=== PATIENT | male | born 1955 | race Caucasian/White ===

== ENCOUNTER 2017-04-18 18:57 | Emergency (ER) | payer OTHER, MEDICAID ==
[~2017-04-18] VITALS: Ht 170.2 cm; Wt 72.6 kg
[~2017-04-18 18:57] MED LIST: ASPI-498 OR; CHOL20007 PO; CYAN100023 PO; DOCU-80 PO; FER325T PO; GABA600T; INSLANTI; INSLISPI SC; OMEP20TA30
[2017-04-18] MEDS ORDERED: VANCOMYCIN 1GM/250ML D5W 250 ML IV ONE (19:45)
[2017-04-18] MEDS ORDERED: InsuLIN REG 1unit/0.01ml Soln (100units/ml) IV ONE (19:45)
[2017-04-18] MEDS ORDERED: KETOROLAC TROMETH 30 MG/ML 1ML VIAL IV ONE (19:45)
[2017-04-18 21:40] VITALS: BP 131/77
== END 2017-04-18 21:45 | disposition home or self-care (01) ==
LOC: ER 19:05
DX: L03.115 Cellulitis of right lower limb (principal); E11.65 Type 2 diabetes mellitus with hyperglycemia; E78.00 Pure hypercholesterolemia, unspecified; I13.0 Hypertensive heart and chronic kidney disease with heart failure and stage 1 through stage 4 chronic kidney disease, or unspecified chronic kidney disease; E11.22 Type 2 diabetes mellitus with diabetic chronic kidney disease; N18.9 Chronic kidney disease, unspecified; I50.9 Heart failure, unspecified; Z79.4 Long term (current) use of insulin; Z79.82 Long term (current) use of aspirin
CPT/HCPCS: 82962; 96365; 96366; 96375; 99285; J1815; J1885; J3370

== ENCOUNTER 2017-05-05 15:19 | Emergency (ER) | payer OTHER, MEDICAID ==
[~2017-05-05] VITALS: Ht 167.6 cm; Wt 54.4 kg
[2017-05-06] MEDS ORDERED: ALTEPLASE ONE (00:04)
[2017-05-06 00:28] VITALS: BP 154/80
== END 2017-05-06 00:29 | disposition home or self-care (01) ==
LOC: ER 15:27
DX: T82.898A Other specified complication of vascular prosthetic devices, implants and grafts, initial encounter (principal); I13.0 Hypertensive heart and chronic kidney disease with heart failure and stage 1 through stage 4 chronic kidney disease, or unspecified chronic kidney disease; I50.9 Heart failure, unspecified; N18.9 Chronic kidney disease, unspecified; E11.22 Type 2 diabetes mellitus with diabetic chronic kidney disease; E78.5 Hyperlipidemia, unspecified; Z79.899 Other long term (current) drug therapy; Y93.89 Activity, other specified; Y99.8 Other external cause status; Y92.89 Other specified places as the place of occurrence of the external cause
CPT/HCPCS: 96374; 99284; J1642

== ENCOUNTER 2017-09-29 11:13 | Inpatient (IN) | payer MEDICARE, MEDICAID ==
[~2017-09-29] VITALS: Ht 167.6 cm; Wt 83.5 kg
[2017-09-29 11:47] LABS: Basophils # (auto) 0 uL; Basophils % (auto) 0.2 % (0.0-2.0); Eosinophils # (auto) 0 uL; Hematocrit 26.6 % (41.0-53.0); Hemoglobin 9.2 g/dL (13.5-17.5); Lymphocytes # (auto) 0.3 uL; Lymphocytes % (auto) 2.4 % (10.0-50.0); Mean Corpuscular Hemoglobin 31.4 pg (28.0-32.0); Mean Corpuscular Hgb Conc. 34.5 g/dL (32.0-36.0); Mean Corpuscular Volume 90.9 fL (80.0-100.0); Monocytes # (auto) 0.6 uL; Monocytes % (auto) 4.9 % (0.0-12.0); Neutrophils # (auto) 11.5 uL; Neutrophils % (auto) 92.5 % (37.0-80.0); Platelet Count (auto) 243 10^3/uL (140-450); Red Blood Cells 2.93 10^6/uL (4.5-5.90); Red Cell Distribution Width 15.7 % (11.8-14.3); White Blood Cell 12.5 10^3/uL (4.4-10.8)
[2017-09-29] MEDS ORDERED: SODIUM CHLORIDE 0.9% 1,000 ML IV ONE (12:06)
[2017-09-29] MEDS ORDERED: NALBUPHINE HCL 10 MG/1ml INJECTION IV ONE (12:15)
[2017-09-29] MEDS ORDERED: ONDANSETRON HCL 4 MG/2 ML VIAL IV ONE (12:15)
[2017-09-29 12:19] LABS: Albumin 3.1 g/dL (3.4-5.0); BUN/Creatinine Ratio 17.4; Bilirubin, Total 0.7 mg/dL (0.2-1.0); Calcium 8.4 mg/dL (8.5-10.1); Potassium 3.8 mmol/L (3.5-5.1); Total Protein 7.1 g/dL (6.4-8.2)
[2017-09-29 12:35] LABS: Urine Bacteria NONE SEEN /hpf (None Seen); Urine Blood 1+ /uL (Negative); Urine Specific Gravity 1.015 (1.001-1.035); Urine WBC <1 /hpf (0 - 3)
[2017-09-29 13:57] LABS: INR 1.22 (0.9-1.15); Partial Thromboplastin Time 38.1 sec (22.64-33.71); Prothrombin Time 13.3 sec (9.37-12.3)
[2017-09-29] MEDS ORDERED: LORazepam 0.5 MG TAB PO PRN (14:45)
[2017-09-29] MEDS ORDERED: PROMETHAZINE HCL 25 MG/ML 1ML IV PRN (14:45)
[2017-09-29] MEDS ORDERED: LACTULOSE 20Gm/30ML SOLN PO PRN (14:45)
[2017-09-29] MEDS ORDERED: NITROGLYCERIN 0.4 MG SL TAB SL PRN (14:45)
[2017-09-29] MEDS ORDERED: MORPHINE SULFATE 4 MG/ML SYR/VIAL IV PRN ×2 (14:45)
[2017-09-29] MEDS ORDERED: DEXTROSE (50%) 50ML SYRG IV PRN (14:45)
[2017-09-29] MEDS ORDERED: ACETAMINOPHEN 500 MG TAB PO PRN (14:45)
[2017-09-29] MEDS: SODIUM CHLORIDE 0.9% 1,000 ML IV SCH (15:05)
[2017-09-29] MEDS: ACCU-CHEK COMFORT CURVE STRIP VI SCH ×2 (16:20→20:00)
[2017-09-29] MEDS: InsuLIN REG 1unit/0.01ml Soln (100units/ml) SC SCH ×2 (16:21→20:00)
[2017-09-29] MEDS ORDERED: MAGNESIUM SULFATE 1GM/100ML 100 ML IV ONE (17:15)
[2017-09-29] MEDS: FERROUS SULFATE 325 MG TAB PO SCH (17:25)
[2017-09-29 17:48] VITALS: BP 134/75
[2017-09-29] MEDS: HYDROcodone-ACET 5/325MG TAB PO PRN (19:42)
[2017-09-29 22:00] VITALS: BP 113/56
[2017-09-29] MEDS: INSULIN LANTUS (GLARGINE) 1 /0.01ml (100units/ml) SC SCH (22:00)
[2017-09-29] MEDS: DOCUSATE SOD 100 MG CAP PO SCH (22:40)
[2017-09-29] MEDS: CYANOCOBALAMIN 500 MCG TAB PO SCH (22:40)
[2017-09-29] MEDS: CLINDAMYCIN 600MG IV 50 ML IV SCH (22:41)
[2017-09-29] MEDS ORDERED: GABAPENTIN 300 MG CAP PO ONE (23:00)
[2017-09-30] MEDS: SODIUM CHLORIDE 0.9% 1,000 ML IV SCH ×3 (01:03→20:45)
[2017-09-30] MEDS: HYDROcodone-ACET 5/325MG TAB PO PRN ×3 (01:58→21:49)
[2017-09-30] MEDS: InsuLIN REG 1unit/0.01ml Soln (100units/ml) SC SCH ×6 (04:10→20:17)
[2017-09-30] MEDS: ACCU-CHEK COMFORT CURVE STRIP VI SCH ×6 (04:10→20:17)
[2017-09-30 05:48] VITALS: BP 108/58
[2017-09-30] MEDS: CLINDAMYCIN 600MG IV 50 ML IV SCH ×3 (06:17→21:51)
[2017-09-30] MEDS: FERROUS SULFATE 325 MG TAB PO SCH ×2 (08:21→18:00)
[2017-09-30 09:20] VITALS: BP 111/60
[2017-09-30] MEDS: DOCUSATE SOD 100 MG CAP PO SCH ×2 (09:46→21:49)
[2017-09-30] MEDS: cefTRIAXone 1GM/10ml IVPUSH 10 ML IV SCH (09:46)
[2017-09-30] MEDS: CYANOCOBALAMIN 500 MCG TAB PO SCH ×2 (09:47→21:49)
[2017-09-30] MEDS ORDERED: LEVEMIR SC (11:07)
[2017-09-30] MEDS ORDERED: INSU100I2 SC (11:07)
[2017-09-30] MEDS ORDERED: FURO40TA4 PO (11:07)
[2017-09-30] MEDS ORDERED: POTA10TA51 PO (11:07)
[2017-09-30] MEDS ORDERED: CHOL100047 PO (11:07)
[2017-09-30] MEDS ORDERED: CYAN100056 PO (11:07)
[2017-09-30] MEDS ORDERED: ATOR40TA52 PO (11:07)
[2017-09-30] MEDS ORDERED: SITA100T7 PO (11:07)
[2017-09-30] MEDS ORDERED: DICL1GEL26 TD (11:35)
[2017-09-30 13:44] VITALS: BP 117/60
[2017-09-30 15:56] LABS: Basophils # (auto) 0 uL; Eosinophils # (auto) 0 uL; Eosinophils % (auto) 0.3 % (0.0-7.0); Hemoglobin 9.2 g/dL (13.5-17.5); Lymphocytes # (auto) 0.5 uL; Lymphocytes % (auto) 4.9 % (10.0-50.0); Mean Corpuscular Hemoglobin 31.3 pg (28.0-32.0); Monocytes # (auto) 0.5 uL; Monocytes % (auto) 5.1 % (0.0-12.0); Neutrophils # (auto) 8.6 uL; Neutrophils % (auto) 89.7 % (37.0-80.0); Platelet Count (auto) 241 10^3/uL (140-450); Red Blood Cells 2.93 10^6/uL (4.5-5.90); Red Cell Distribution Width 15.7 % (11.8-14.3); White Blood Cell 9.5 10^3/uL (4.4-10.8)
[2017-09-30 16:03] LABS: INR 1.05 (0.9-1.15); Prothrombin Time 11.4 sec (9.37-12.3)
[2017-09-30 16:10] LABS: Albumin 2.7 g/dL (3.4-5.0); BUN/Creatinine Ratio 15.1; Bilirubin, Total 0.3 mg/dL (0.2-1.0); Calcium 8.7 mg/dL (8.5-10.1); Potassium 4.3 mmol/L (3.5-5.1); Total Protein 7.2 g/dL (6.4-8.2)
[2017-09-30 17:29] VITALS: BP 140/74
[2017-09-30] MEDS ORDERED: IPRATROPIUM BROM 0.5 MG/2.5ML INH SOL NEB PRN (18:45)
[2017-09-30] MEDS: MEPERIDINE HCL (25 MG/ML) 1ML VIAL IV PRN (20:17)
[2017-09-30 20:22] VITALS: BP 140/74
[2017-09-30] MEDS: ATORVASTATIN 20 MG TAB PO SCH (21:48)
[2017-09-30] MEDS: GABAPENTIN 300 MG CAP PO SCH (21:49)
[2017-09-30] MEDS: INSULIN LANTUS (GLARGINE) 1 /0.01ml (100units/ml) SC SCH (21:50)
[2017-09-30 22:00] VITALS: BP 119/62
[2017-09-30] MEDS: DICLOFENAC SODIUM 3% TOP SCH (22:00)
[2017-10-01] VITALS (9 sets, daily range): BP systolic 110–146; BP diastolic 60–80
[2017-10-01] MEDS ORDERED: ALBUTEROL SULF 2.5 MG/0.5ML(0.5%) NEB SOLN NEB PRN
[2017-10-01] MEDS: ACCU-CHEK COMFORT CURVE STRIP VI SCH ×7 (00:08→23:47)
[2017-10-01] MEDS: MEPERIDINE HCL (25 MG/ML) 1ML VIAL IV PRN ×5 (00:34→19:59)
[2017-10-01] MEDS: InsuLIN REG 1unit/0.01ml Soln (100units/ml) SC SCH ×7 (04:00→23:47)
[2017-10-01] MEDS: HYDROcodone-ACET 5/325MG TAB PO PRN ×3 (04:18→21:13)
[2017-10-01] MEDS: CLINDAMYCIN 600MG IV 50 ML IV SCH ×3 (06:10→21:14)
[2017-10-01] MEDS: GABAPENTIN 300 MG CAP PO SCH ×4 (06:10→21:12)
[2017-10-01 06:26] LABS: Basophils # (auto) 0 uL; Basophils % (auto) 0.1 % (0.0-2.0); Eosinophils # (auto) 0.1 uL; Hemoglobin 7.7 g/dL (13.5-17.5); Lymphocytes # (auto) 0.5 uL; Monocytes # (auto) 0.5 uL; Neutrophils # (auto) 5.9 uL; Nucleated Red Blood Cells % 0.1 %
[2017-10-01 06:28] LABS: Eosinophils % (auto) 1.2 % (0.0-7.0); Hematocrit 22.2 % (41.0-53.0); Lymphocytes % (auto) 6.7 % (10.0-50.0); Mean Corpuscular Hemoglobin 31.6 pg (28.0-32.0); Mean Corpuscular Hgb Conc. 34.6 g/dL (32.0-36.0); Mean Corpuscular Volume 91.4 fL (80.0-100.0); Monocytes % (auto) 7.2 % (0.0-12.0); Neutrophils % (auto) 84.8 % (37.0-80.0); Platelet Count (auto) 213 10^3/uL (140-450); Red Blood Cells 2.43 10^6/uL (4.5-5.90); Red Cell Distribution Width 15.4 % (11.8-14.3)
[2017-10-01 06:50] LABS: Potassium 4.6 mmol/L (3.5-5.1)
[2017-10-01] MEDS: SODIUM CHLORIDE 0.9% 1,000 ML IV SCH ×2 (06:55→16:45)
[2017-10-01 07:00] LABS: Albumin 2.3 g/dL (3.4-5.0); BUN/Creatinine Ratio 20.2; Bilirubin, Total 0.3 mg/dL (0.2-1.0); Calcium 8.8 mg/dL (8.5-10.1); Total Protein 6.1 g/dL (6.4-8.2)
[2017-10-01] MEDS: FERROUS SULFATE 325 MG TAB PO SCH ×2 (08:00→18:26)
[2017-10-01] MEDS: cefTRIAXone 1GM/10ml IVPUSH 10 ML IV SCH (09:14)
[2017-10-01] MEDS: CYANOCOBALAMIN 500 MCG TAB PO SCH ×3 (10:00→21:13)
[2017-10-01] MEDS: DICLOFENAC SODIUM 3% TOP SCH ×2 (10:00→21:15)
[2017-10-01] MEDS: FUROSEMIDE 40 MG TAB PO SCH (10:00)
[2017-10-01] MEDS: DOCUSATE SOD 100 MG CAP PO SCH ×3 (10:00→21:13)
[2017-10-01] MEDS: POTASSIUM CHL 10 Meq TABLET PO SCH (10:00)
[2017-10-01] MEDS ORDERED: fentaNYL CITRATE 100 MCG/2 ML VL ONE (11:24)
[2017-10-01] MEDS ORDERED: MIDAZOLAM HCL 1MG/1ML-2 ML VIAL ONE (11:24)
[2017-10-01] MEDS ORDERED: MEPERIDINE HCL (50 MG/ML) 1 ML VIAL ONE (11:25)
[2017-10-01] MEDS ORDERED: PROPOFOL 10 MG/ML 20 ML IV ONE (11:25)
[2017-10-01] MEDS ORDERED: DEXAMETHASONE SOD PHOS 10MG/1ML VIAL INJ ONE (11:25)
[2017-10-01] MEDS ORDERED: BUPIVACAINE W/ EPINEPH 0.25% INJ 50ML MDV ONE (11:51)
[2017-10-01] MEDS ORDERED: BUPIVACAINE 0.25% INJ 50ML VIAL ONE (11:52)
[2017-10-01] MEDS ORDERED: BUPIVACAINE HCL 50 ML ONE (11:52)
[2017-10-01] MEDS ORDERED: ceFAZolin 1GM/50ML 50 ML IV ONE (11:58)
[2017-10-01] MEDS ORDERED: hydrALAZINE HCL 20 MG/ML VL IV PRN (13:45)
[2017-10-01] MEDS ORDERED: ACCU-CHEK COMFORT CURVE STRIP VI ONE (13:45)
[2017-10-01] MEDS ORDERED: KETOROLAC TROMETH 30 MG/ML 1ML VIAL IV ONE (13:45)
[2017-10-01] MEDS ORDERED: ONDANSETRON HCL 4 MG/2 ML VIAL IV ONE (13:45)
[2017-10-01] MEDS ORDERED: LABETALOL HCL 5 MG/ML 4ML SYRINGE IV PRN (13:45)
[2017-10-01] MEDS ORDERED: ePHEDrine SULFATE 50 MG/ML AMP IV PRN (13:45)
[2017-10-01] MEDS ORDERED: MIDAZOLAM HCL 1MG/1ML-2 ML VIAL IV PRN (13:45)
[2017-10-01] MEDS ORDERED: fentaNYL CITRATE 100 MCG/2 ML VL IV ONE (14:00)
[2017-10-01] MEDS: ceFAZolin 1GM/50ML 50 ML IV SCH ×2 (18:26→23:46)
[2017-10-01] MEDS: ATORVASTATIN 20 MG TAB PO SCH (21:12)
[2017-10-01] MEDS: INSULIN LANTUS (GLARGINE) 1 /0.01ml (100units/ml) SC SCH (21:14)
[2017-10-02] MEDS: MEPERIDINE HCL (25 MG/ML) 1ML VIAL IV PRN ×4 (01:27→15:36)
[2017-10-02] MEDS: SODIUM CHLORIDE 0.9% 1,000 ML IV SCH ×2 (02:45→12:45)
[2017-10-02] MEDS: HYDROcodone-ACET 5/325MG TAB PO PRN ×2 (04:18→18:02)
[2017-10-02] MEDS: ACCU-CHEK COMFORT CURVE STRIP VI SCH ×5 (04:18→19:41)
[2017-10-02] MEDS: InsuLIN REG 1unit/0.01ml Soln (100units/ml) SC SCH ×5 (04:19→19:50)
[2017-10-02 04:58] VITALS: BP 124/67
[2017-10-02] MEDS: CLINDAMYCIN 600MG IV 50 ML IV SCH ×3 (05:58→22:02)
[2017-10-02] MEDS: ceFAZolin 1GM/50ML 50 ML IV SCH ×3 (05:59→17:32)
[2017-10-02] MEDS: GABAPENTIN 300 MG CAP PO SCH ×3 (05:59→22:02)
[2017-10-02 07:08] LABS: Basophils # (auto) 0 uL; Basophils % (auto) 0.1 % (0.0-2.0); Eosinophils # (auto) 0 uL; Hematocrit 28.7 % (41.0-53.0); Hemoglobin 9.9 g/dL (13.5-17.5); Lymphocytes # (auto) 0.4 uL; Lymphocytes % (auto) 4.4 % (10.0-50.0); Mean Corpuscular Hemoglobin 31.1 pg (28.0-32.0); Mean Corpuscular Hgb Conc. 34.6 g/dL (32.0-36.0); Mean Corpuscular Volume 89.8 fL (80.0-100.0); Monocytes # (auto) 0.6 uL; Neutrophils # (auto) 7.5 uL; Neutrophils % (auto) 88.5 % (37.0-80.0); Platelet Count (auto) 267 10^3/uL (140-450); Red Blood Cells 3.19 10^6/uL (4.5-5.90); Red Cell Distribution Width 15.4 % (11.8-14.3); White Blood Cell 8.5 10^3/uL (4.4-10.8)
[2017-10-02 07:23] LABS: BUN/Creatinine Ratio 25.5; Calcium 8.4 mg/dL (8.5-10.1); Potassium 4.5 mmol/L (3.5-5.1)
[2017-10-02] MEDS: FERROUS SULFATE 325 MG TAB PO SCH ×2 (08:24→17:32)
[2017-10-02 09:00] VITALS: BP 134/69
[2017-10-02] MEDS: cefTRIAXone 1GM/10ml IVPUSH 10 ML IV SCH (09:38)
[2017-10-02] MEDS: FUROSEMIDE 40 MG TAB PO SCH (09:46)
[2017-10-02] MEDS: DOCUSATE SOD 100 MG CAP PO SCH ×2 (09:46→22:02)
[2017-10-02] MEDS: POTASSIUM CHL 10 Meq TABLET PO SCH (09:46)
[2017-10-02] MEDS: CYANOCOBALAMIN 500 MCG TAB PO SCH ×2 (09:46→22:03)
[2017-10-02] MEDS: DICLOFENAC SODIUM 3% TOP SCH ×2 (10:00→22:00)
[2017-10-02] MEDS ORDERED: PANTOPRAZOLE 40 MG/10 ML VIAL IV ONE (10:15)
[2017-10-02] MEDS ORDERED: ALUM & MAG HYDROX-SIMETH LIQ(MAALOX) 30 ML PO PRN (11:00)
[2017-10-02 14:24] VITALS: BP 130/71
[2017-10-02 16:40] VITALS: BP 129/61
[2017-10-02] MEDS: TEMAZEPAM 15 MG CAP PO PRN (22:04)
[2017-10-02] MEDS: ATORVASTATIN 20 MG TAB PO SCH (22:04)
[2017-10-02] MEDS: INSULIN LANTUS (GLARGINE) 1 /0.01ml (100units/ml) SC SCH (22:10)
[2017-10-02 23:07] VITALS: BP 137/74
[2017-10-03] MEDS: ceFAZolin 1GM/50ML 50 ML IV SCH ×3 (00:11→11:34)
[2017-10-03] MEDS: ACCU-CHEK COMFORT CURVE STRIP VI SCH ×6 (00:26→20:04)
[2017-10-03] MEDS: InsuLIN REG 1unit/0.01ml Soln (100units/ml) SC SCH ×6 (00:27→20:05)
[2017-10-03] MEDS: HYDROcodone-ACET 5/325MG TAB PO PRN ×3 (00:28→16:16)
[2017-10-03] MEDS: SODIUM CHLORIDE 0.9% 1,000 ML IV SCH ×3 (05:09→20:05)
[2017-10-03] MEDS: MEPERIDINE HCL (25 MG/ML) 1ML VIAL IV PRN ×2 (05:10→21:09)
[2017-10-03 05:17] VITALS: BP 161/91
[2017-10-03] MEDS: GABAPENTIN 300 MG CAP PO SCH ×3 (05:44→22:05)
[2017-10-03] MEDS: CLINDAMYCIN 600MG IV 50 ML IV SCH ×3 (05:44→22:07)
[2017-10-03 08:13] LABS: Basophils # (auto) 0 uL; Basophils % (auto) 0.2 % (0.0-2.0); Eosinophils # (auto) 0.1 uL; Eosinophils % (auto) 1.8 % (0.0-7.0); Hematocrit 30.9 % (41.0-53.0); Hemoglobin 10.6 g/dL (13.5-17.5); Lymphocytes # (auto) 0.5 uL; Lymphocytes % (auto) 10.9 % (10.0-50.0); Mean Corpuscular Hgb Conc. 34.2 g/dL (32.0-36.0); Mean Corpuscular Volume 90.9 fL (80.0-100.0); Monocytes # (auto) 0.4 uL; Monocytes % (auto) 8.1 % (0.0-12.0); Neutrophils # (auto) 3.9 uL; Nucleated Red Blood Cells % 0.1 %; Platelet Count (auto) 261 10^3/uL (140-450); Red Cell Distribution Width 15.6 % (11.8-14.3)
[2017-10-03] MEDS: FERROUS SULFATE 325 MG TAB PO SCH ×2 (08:15→17:30)
[2017-10-03 08:59] VITALS: BP 144/81
[2017-10-03] MEDS: DICLOFENAC SODIUM 3% TOP SCH ×2 (10:00→22:00)
[2017-10-03] MEDS: FUROSEMIDE 40 MG TAB PO SCH (10:17)
[2017-10-03] MEDS: cefTRIAXone 1GM/10ml IVPUSH 10 ML IV SCH (10:17)
[2017-10-03] MEDS: ENOXAPARIN SOD 40 MG/0.4 ML SYRINGE SC SCH (10:18)
[2017-10-03] MEDS: CYANOCOBALAMIN 500 MCG TAB PO SCH ×2 (10:18→22:05)
[2017-10-03] MEDS: PANTOPRAZOLE 40 MG/10 ML VIAL IV SCH (10:18)
[2017-10-03] MEDS: DOCUSATE SOD 100 MG CAP PO SCH ×2 (10:18→22:04)
[2017-10-03] MEDS: POTASSIUM CHL 10 Meq TABLET PO SCH (10:18)
[2017-10-03 13:00] VITALS: BP 148/74
[2017-10-03 17:31] VITALS: BP 151/110
[2017-10-03 19:09] VITALS: BP 151/110
[2017-10-03 21:20] VITALS: BP 143/75
[2017-10-03] MEDS: ATORVASTATIN 20 MG TAB PO SCH (22:06)
[2017-10-03] MEDS: TEMAZEPAM 15 MG CAP PO PRN (22:07)
[2017-10-03] MEDS: INSULIN LANTUS (GLARGINE) 1 /0.01ml (100units/ml) SC SCH (22:08)
[2017-10-04] MEDS: InsuLIN REG 1unit/0.01ml Soln (100units/ml) SC SCH ×6 (00:02→19:59)
[2017-10-04] MEDS: ACCU-CHEK COMFORT CURVE STRIP VI SCH ×6 (00:02→19:59)
[2017-10-04] MEDS: HYDROcodone-ACET 5/325MG TAB PO PRN ×3 (02:09→21:38)
[2017-10-04] MEDS: SODIUM CHLORIDE 0.9% 1,000 ML IV SCH ×3 (04:45→21:36)
[2017-10-04 05:05] VITALS: BP 139/73
[2017-10-04] MEDS: CLINDAMYCIN 600MG IV 50 ML IV SCH ×3 (05:43→21:38)
[2017-10-04] MEDS: GABAPENTIN 300 MG CAP PO SCH ×3 (05:43→21:37)
[2017-10-04 06:56] LABS: Basophils # (auto) 0 uL; Basophils % (auto) 0.3 % (0.0-2.0); Eosinophils # (auto) 0.2 uL; Eosinophils % (auto) 2.9 % (0.0-7.0); Hematocrit 31.3 % (41.0-53.0); Hemoglobin 10.7 g/dL (13.5-17.5); Lymphocytes # (auto) 0.8 uL; Lymphocytes % (auto) 14.3 % (10.0-50.0); Mean Corpuscular Hemoglobin 31.2 pg (28.0-32.0); Mean Corpuscular Volume 91.7 fL (80.0-100.0); Monocytes # (auto) 0.5 uL; Neutrophils # (auto) 3.9 uL; Neutrophils % (auto) 72.5 % (37.0-80.0); Platelet Count (auto) 265 10^3/uL (140-450); Red Blood Cells 3.42 10^6/uL (4.5-5.90); Red Cell Distribution Width 15.6 % (11.8-14.3); White Blood Cell 5.4 10^3/uL (4.4-10.8)
[2017-10-04] MEDS: FERROUS SULFATE 325 MG TAB PO SCH ×2 (08:45→17:56)
[2017-10-04] MEDS: cefTRIAXone 1GM/10ml IVPUSH 10 ML IV SCH (08:45)
[2017-10-04 08:53] VITALS: BP 143/72
[2017-10-04] MEDS: MEPERIDINE HCL (25 MG/ML) 1ML VIAL IV PRN ×2 (09:54→19:43)
[2017-10-04] MEDS: PANTOPRAZOLE 40 MG/10 ML VIAL IV SCH (09:54)
[2017-10-04] MEDS: FUROSEMIDE 40 MG TAB PO SCH (09:55)
[2017-10-04] MEDS: DOCUSATE SOD 100 MG CAP PO SCH ×2 (09:55→21:36)
[2017-10-04] MEDS: POTASSIUM CHL 10 Meq TABLET PO SCH (09:55)
[2017-10-04] MEDS: DICLOFENAC SODIUM 3% TOP SCH ×2 (09:56→22:00)
[2017-10-04] MEDS: CYANOCOBALAMIN 500 MCG TAB PO SCH ×2 (09:56→21:37)
[2017-10-04] MEDS: ENOXAPARIN SOD 40 MG/0.4 ML SYRINGE SC SCH (09:56)
[2017-10-04 13:00] VITALS: BP 152/73
[2017-10-04 17:02] VITALS: BP 153/76
[2017-10-04] MEDS: ATORVASTATIN 20 MG TAB PO SCH (21:37)
[2017-10-04] MEDS: INSULIN LANTUS (GLARGINE) 1 /0.01ml (100units/ml) SC SCH (21:38)
[2017-10-04 21:48] VITALS: BP 151/72
[2017-10-05] MEDS: ACCU-CHEK COMFORT CURVE STRIP VI SCH ×4 (01:25→12:00)
[2017-10-05] MEDS: MEPERIDINE HCL (25 MG/ML) 1ML VIAL IV PRN ×3 (01:32→13:49)
[2017-10-05] MEDS: InsuLIN REG 1unit/0.01ml Soln (100units/ml) SC SCH ×4 (04:03→12:00)
[2017-10-05 04:46] VITALS: BP 155/82
[2017-10-05] MEDS: GABAPENTIN 300 MG CAP PO SCH ×2 (05:24→13:48)
[2017-10-05] MEDS: CLINDAMYCIN 600MG IV 50 ML IV SCH (05:24)
[2017-10-05 06:40] LABS: Basophils # (auto) 0 uL; Basophils % (auto) 0.2 % (0.0-2.0); Eosinophils # (auto) 0.2 uL; Eosinophils % (auto) 2.9 % (0.0-7.0); Hematocrit 30.8 % (41.0-53.0); Hemoglobin 10.5 g/dL (13.5-17.5); Lymphocytes # (auto) 0.8 uL; Lymphocytes % (auto) 14.1 % (10.0-50.0); Mean Corpuscular Hemoglobin 31.1 pg (28.0-32.0); Mean Corpuscular Hgb Conc. 34.3 g/dL (32.0-36.0); Mean Corpuscular Volume 90.9 fL (80.0-100.0); Monocytes # (auto) 0.6 uL; Monocytes % (auto) 11.1 % (0.0-12.0); Neutrophils # (auto) 4.2 uL; Neutrophils % (auto) 71.7 % (37.0-80.0); Nucleated Red Blood Cells % 0.1 %; Platelet Count (auto) 260 10^3/uL (140-450); Red Blood Cells 3.39 10^6/uL (4.5-5.90); Red Cell Distribution Width 15.2 % (11.8-14.3); White Blood Cell 5.8 10^3/uL (4.4-10.8)
[2017-10-05] MEDS: FERROUS SULFATE 325 MG TAB PO SCH (08:05)
[2017-10-05 08:51] VITALS: BP 149/78
[2017-10-05] MEDS: DICLOFENAC SODIUM 3% TOP SCH (10:00)
[2017-10-05] MEDS: cefTRIAXone 1GM/10ml IVPUSH 10 ML IV SCH (10:22)
[2017-10-05] MEDS: PANTOPRAZOLE 40 MG/10 ML VIAL IV SCH (10:22)
[2017-10-05] MEDS: CYANOCOBALAMIN 500 MCG TAB PO SCH (10:23)
[2017-10-05] MEDS: POTASSIUM CHL 10 Meq TABLET PO SCH (10:23)
[2017-10-05] MEDS: DOCUSATE SOD 100 MG CAP PO SCH (10:23)
[2017-10-05] MEDS: FUROSEMIDE 40 MG TAB PO SCH (10:24)
[2017-10-05] MEDS: ENOXAPARIN SOD 40 MG/0.4 ML SYRINGE SC SCH (10:24)
[2017-10-05] MEDS: SODIUM CHLORIDE 0.9% 1,000 ML IV SCH (10:45)
[2017-10-05 12:49] VITALS: BP 140/70
[2017-10-05 14:06] VITALS: BP 150/84
== END 2017-10-05 14:15 | DRG 470 ==
LOC: EDBD 11:13 → ER 11:13 → TELE-EAST 11:14
PROVIDERS: ADMIT Internal Medicine; ATTEND Family Medicine
PROC: 0MBL0ZZ Excision of Right Hip Bursa and Ligament, Open Approach (ICD-10-PCS; 2017-10-01)
PROC: 30233N1 Transfusion of Nonautologous Red Blood Cells into Peripheral Vein, Percutaneous Approach (ICD-10-PCS; 2017-10-01)
PROC: 0SRR0JA Replacement of Right Hip Joint, Femoral Surface with Synthetic Substitute, Uncemented, Open Approach (ICD-10-PCS; principal; 2017-10-01 11:58)
DX: S72.001A Fracture of unspecified part of neck of right femur, initial encounter for closed fracture (principal); D68.9 Coagulation defect, unspecified; E44.0 Moderate protein-calorie malnutrition; I13.0 Hypertensive heart and chronic kidney disease with heart failure and stage 1 through stage 4 chronic kidney disease, or unspecified chronic kidney disease; E11.65 Type 2 diabetes mellitus with hyperglycemia; R65.10 Systemic inflammatory response syndrome (SIRS) of non-infectious origin without acute organ dysfunction; E87.1 Hypo-osmolality and hyponatremia; M86.9 Osteomyelitis, unspecified; S93.04XA Dislocation of right ankle joint, initial encounter; K21.9 Gastro-esophageal reflux disease without esophagitis
CPT/HCPCS: 36415; 71045; 73502; 73610; 80048; 80053; 81001; 82962; 83036; 83735; 85025; 85610; 85730; 86850; 86900; 86901; 86920; 93005; 93306; 96361; 96365; 96375; 97110; 97530; C9113; J0690; J1100; J1815; J2250; J2405; J2704; J3490

== ENCOUNTER 2018-02-12 17:45 | Observation (INO) | payer MEDICARE ==
[~2018-02-12] VITALS: Ht 167.6 cm; Wt 54.4 kg
[~2018-02-12 17:45] MED LIST changes: +ATOR40TA52 PO; +CHOL100047 PO; -CHOL20007 PO; -CYAN100023 PO; +CYAN100056 PO; +DICL1GEL26 TD; +FURO40TA4 PO; -INSLANTI; -INSLISPI SC; +INSU100I2 SC; +LEVEMIR SC; +POTA10TA51 PO; +SITA100T7 PO
[2018-02-12] MEDS ORDERED: IOHEXOL 300 MG/ML 100ML BOTTLE IJ ONE (18:45)
[2018-02-12 18:56] LABS: Basophils # (auto) 0 uL; Basophils % (auto) 0.6 % (0.0-2.0); Eosinophils # (auto) 0 uL; Eosinophils % (auto) 1.1 % (0.0-7.0); Hematocrit 27.3 % (41.0-53.0); Hemoglobin 9.3 g/dL (13.5-17.5); Lymphocytes # (auto) 0.7 uL; Mean Corpuscular Hemoglobin 29.1 pg (28.0-32.0); Mean Corpuscular Hgb Conc. 34.1 g/dL (32.0-36.0); Mean Corpuscular Volume 85.2 fL (80.0-100.0); Monocytes # (auto) 0.3 uL; Neutrophils # (auto) 3.3 uL; Neutrophils % (auto) 75.3 % (37.0-80.0); Red Blood Cells 3.21 10^6/uL (4.5-5.90); Red Cell Distribution Width 15.9 % (11.8-14.3); White Blood Cell 4.3 10^3/uL (4.4-10.8)
[2018-02-12 18:59] LABS: Platelet Count (auto) 101 10^3/uL (140-450)
[2018-02-12] MEDS ORDERED: PANTOPRAZOLE 40 MG/10 ML VIAL IV ONE (19:00)
[2018-02-12] MEDS ORDERED: ALUM & MAG HYDROX-SIMETH LIQ(MAALOX) 30 ML PO ONE (19:00)
[2018-02-12] MEDS ORDERED: ONDANSETRON HCL 4 MG/2 ML VIAL IV ONE (19:00)
[2018-02-12 19:03] LABS: Albumin 3.1 g/dL (3.4-5.0); BUN/Creatinine Ratio 14.8; Calcium 8.5 mg/dL (8.5-10.1); Magnesium 1.7 mg/dL (1.6-2.6); Potassium 3.4 mmol/L (3.5-5.1)
[2018-02-12 19:08] LABS: Bilirubin, Total 0.3 mg/dL (0.2-1.0); Total Protein 7.3 g/dL (6.4-8.2)
[2018-02-12 20:26] VITALS: BP 131/84
== END 2018-02-12 21:23 | disposition home or self-care (01) | DRG 392 ==
LOC: EDUNIT# 17:45 → EDBD 17:45 → ER 17:53 → OVERFLOW 17:54 → ER 21:23
PROVIDERS: ADMIT Anesthesiology; ATTEND Anesthesiology
DX: K21.9 Gastro-esophageal reflux disease without esophagitis (principal); I13.0 Hypertensive heart and chronic kidney disease with heart failure and stage 1 through stage 4 chronic kidney disease, or unspecified chronic kidney disease; E86.0 Dehydration; E11.22 Type 2 diabetes mellitus with diabetic chronic kidney disease; K80.20 Calculus of gallbladder without cholecystitis without obstruction; I50.9 Heart failure, unspecified; N18.9 Chronic kidney disease, unspecified; E78.5 Hyperlipidemia, unspecified; K25.9 Gastric ulcer, unspecified as acute or chronic, without hemorrhage or perforation; Z79.899 Other long term (current) drug therapy
CPT/HCPCS: 36415; 74177; 80053; 83735; 84484; 85025; 93005; 96374; 99285; C9113; G0378; Q9967

== ENCOUNTER 2021-05-11 21:19 | Inpatient (IN) | payer OTHER, MEDICAID ==
[~2021-05-11] VITALS: Ht 167.6 cm; Wt 52.2 kg
[2021-05-11 22:59] LABS: Eosinophils # (auto) 0 10 ^3/uL (0-0.8); Lymphocytes # (auto) 0.3 10 ^3/uL (0.4-5.4); Monocytes # (auto) 0.2 10 ^3/uL (0-1.3); Monocytes % (auto) 4.3 % (0.0-12.0); Neutrophils # (auto) 4.5 10 ^3/uL (1.6-8.6)
[2021-05-11 23:10] LABS: Basophils # (auto) 0.1 10 ^3/uL (0-0.2); Basophils % (auto) 1.7 % (0.0-2.0); Eosinophils % (auto) 0.8 % (0.0-7.0); Hematocrit 22.1 % (41.0-53.0); Hemoglobin 7.9 g/dL (13.5-17.5); Lymphocytes % (auto) 5.9 % (10.0-50.0); Mean Corpuscular Hemoglobin 30.8 pg (28.0-32.0); Mean Corpuscular Hgb Conc. 35.8 g/dL (32.0-36.0); Mean Corpuscular Volume 86.1 fL (80.0-100.0); Neutrophils % (auto) 87.3 % (37.0-80.0); Red Blood Cells 2.57 10^6/uL (4.5-5.90); Red Cell Distribution Width 13.3 % (11.8-14.3); White Blood Cell 5.2 10^3/uL (4.4-10.8)
[2021-05-11 23:18] LABS: Albumin 3.3 g/dL (3.4-5.0); Potassium 4.7 mmol/L (3.5-5.1)
[2021-05-11 23:20] LABS: BUN/Creatinine Ratio 9.4
[2021-05-11 23:33] LABS: Bilirubin, Total 0.6 mg/dL (0.2-1.0); Total Protein 6.3 g/dL (6.4-8.2)
[2021-05-12] MEDS ORDERED: SODIUM CHLORIDE 0.9% 1,000 ML IV ONE (05:45)
[2021-05-12] MEDS ORDERED: MORPHINE SULFATE INJECTION 2 MG/ML SYRG IV ONE (08:30)
[2021-05-12] MEDS ORDERED: ONDANSETRON HCL 4 MG/2 ML VIAL IV ONE (08:30)
[2021-05-12 09:58] LABS: Urine Bacteria NONE SEEN /hpf (None Seen); Urine Blood TRACE /uL (Negative); Urine Specific Gravity 1.003 (1.001-1.035); Urine WBC <1 /hpf (0 - 3)
[2021-05-12 10:10] LABS: Albumin 3.1 g/dL (3.4-5.0); Calcium 7.9 mg/dL (8.5-10.1); Magnesium 1.4 mg/dL (1.6-2.6); Potassium 4.4 mmol/L (3.5-5.1)
[2021-05-12 10:14] LABS: BUN/Creatinine Ratio 10.9; Bilirubin, Total 0.5 mg/dL (0.2-1.0); Total Protein 6.4 g/dL (6.4-8.2)
[2021-05-12] MEDS ORDERED: MORPHINE SULFATE INJECTION 2 MG/ML SYRG IV PRN (10:15)
[2021-05-12] MEDS ORDERED: NITROGLYCERIN 0.4 MG SL TAB SL PRN (10:15)
[2021-05-12] MEDS ORDERED: ONDANSETRON HCL 4 MG/2 ML VIAL ONE (10:40)
[2021-05-12] MEDS ORDERED: MORPHINE SULFATE INJECTION 2 MG/ML SYRG ONE (10:40)
[2021-05-12 10:52] LABS: % Iron Saturation 44.5 % (20-55)
[2021-05-12 12:29] LABS: Basophils # (auto) 0 10 ^3/uL (0-0.2); Eosinophils # (auto) 0 10 ^3/uL (0-0.8); Lymphocytes # (auto) 0.3 10 ^3/uL (0.4-5.4); Monocytes # (auto) 0.2 10 ^3/uL (0-1.3); Neutrophils # (auto) 2.8 10 ^3/uL (1.6-8.6); White Blood Cell 3.4 10^3/uL (4.4-10.8)
[2021-05-12 12:31] LABS: Basophils % (auto) 0.3 % (0.0-2.0); Eosinophils % (auto) 0.9 % (0.0-7.0); Hematocrit 22.3 % (41.0-53.0); Mean Corpuscular Hemoglobin 31.3 pg (28.0-32.0); Mean Corpuscular Hgb Conc. 36.1 g/dL (32.0-36.0); Mean Corpuscular Volume 86.9 fL (80.0-100.0); Neutrophils % (auto) 82.8 % (37.0-80.0); Nucleated Red Blood Cells % 0.1 %; Red Blood Cells 2.56 10^6/uL (4.5-5.90); Red Cell Distribution Width 13.4 % (11.8-14.3)
[2021-05-12] MEDS ORDERED: FER325T PO (13:35)
[2021-05-12] MEDS ORDERED: GABA400C PO (13:35)
[2021-05-12] MEDS ORDERED: ASCO500T11 PO (13:35)
[2021-05-12] MEDS ORDERED: DONE1TAB88 PO (13:35)
[2021-05-12] MEDS ORDERED: LEVEMIR SC (13:35)
[2021-05-12] MEDS ORDERED: LISI20TA28 PO (13:35)
[2021-05-12] MEDS ORDERED: METF500S PO (13:35)
[2021-05-12] MEDS ORDERED: DEXTROSE (50%) 50ML SYRG IV PRN (15:45)
[2021-05-12] MEDS ORDERED: SODIUM CHL 3% 300 ML IV ONE (15:45)
[2021-05-12] MEDS: InsuLIN REG 1unit/0.01ml Soln (100units/ml) SC SCH ×2 (17:30→23:00)
[2021-05-12] MEDS: MAGNESIUM SULFATE 1GM/100ML 100 ML IV SCH ×2 (17:30→20:30)
[2021-05-12] MEDS: ACCU-CHEK COMFORT CURVE STRIP VI SCH ×2 (17:49→23:00)
[2021-05-12] MEDS: DONEPEZIL HYDROCHLORIDE 5 MG TAB PO SCH (23:00)
[2021-05-13 05:30] LABS: Magnesium 1.8 mg/dL (1.6-2.6); Potassium 3.6 mmol/L (3.5-5.1)
[2021-05-13 05:36] LABS: Albumin 2.7 g/dL (3.4-5.0); BUN/Creatinine Ratio 16.1; Bilirubin, Total 0.2 mg/dL (0.2-1.0); Calcium 7.1 mg/dL (8.5-10.1); Total Protein 5.6 g/dL (6.4-8.2)
[2021-05-13] MEDS: ACCU-CHEK COMFORT CURVE STRIP VI SCH ×4 (06:45→22:00)
[2021-05-13] MEDS: InsuLIN REG 1unit/0.01ml Soln (100units/ml) SC SCH ×4 (06:45→22:36)
[2021-05-13 08:10] LABS: Basophils # (auto) 0 10 ^3/uL (0-0.2); Basophils % (auto) 0.4 % (0.0-2.0); Eosinophils # (auto) 0.1 10 ^3/uL (0-0.8); Eosinophils % (auto) 1.6 % (0.0-7.0); Hematocrit 24.5 % (41.0-53.0); Hemoglobin 8.6 g/dL (13.5-17.5); Lymphocytes # (auto) 0.4 10 ^3/uL (0.4-5.4); Lymphocytes % (auto) 12.6 % (10.0-50.0); Mean Corpuscular Volume 88.7 fL (80.0-100.0); Monocytes # (auto) 0.2 10 ^3/uL (0-1.3); Monocytes % (auto) 7.2 % (0.0-12.0); Neutrophils # (auto) 2.6 10 ^3/uL (1.6-8.6); Neutrophils % (auto) 78.2 % (37.0-80.0); Nucleated Red Blood Cells % 0.1 %; Red Blood Cells 2.76 10^6/uL (4.5-5.90); Red Cell Distribution Width 13.5 % (11.8-14.3); White Blood Cell 3.3 10^3/uL (4.4-10.8)
[2021-05-13 08:52] LABS: INR 0.98 (0.9-1.15)
[2021-05-13] MEDS ORDERED: NITROGLYCERIN 0.4 MG SL TAB SL PRN (09:45)
[2021-05-13] MEDS ORDERED: MORPHINE SULFATE INJECTION 2 MG/ML SYRG IV PRN (09:45)
[2021-05-13] MEDS: PANTOPRAZOLE 40 MG/10 ML VIAL INJ IV SCH (09:47)
[2021-05-13] MEDS ORDERED: METF-370 PO (10:10)
[2021-05-13] MEDS ORDERED: TRIO1TP TOP (10:10)
[2021-05-13] MEDS ORDERED: LISI-716 PO (10:10)
[2021-05-13] MEDS ORDERED: GABA800T97 PO (10:10)
[2021-05-13] MEDS: D5W 5% 1,000 ML IV SCH ×2 (10:37→17:31)
[2021-05-13 10:46] LABS: % Iron Saturation 50.4 % (20-55)
[2021-05-13 12:00] VITALS: BP 108/81
[2021-05-13 14:11] LABS: Calcium 8.4 mg/dL (8.5-10.1); Potassium 4.8 mmol/L (3.5-5.1)
[2021-05-13 14:14] LABS: BUN/Creatinine Ratio 13.9
[2021-05-13 22:00] VITALS: BP 141/86
[2021-05-13] MEDS ORDERED: SODIUM CHL 3% 100 ML IV ONE (22:30)
[2021-05-13] MEDS: DONEPEZIL HYDROCHLORIDE 5 MG TAB PO SCH (22:38)
[2021-05-14] MEDS ORDERED: HALOPERIDOL LACTATE 5 MG/ML INJ VIAL IM ONE (00:30)
[2021-05-14] MEDS: InsuLIN REG 1unit/0.01ml Soln (100units/ml) SC SCH ×2 (05:20→11:41)
[2021-05-14] MEDS: ACCU-CHEK COMFORT CURVE STRIP VI SCH ×2 (05:20→11:41)
[2021-05-14 09:29] VITALS: BP 149/78
[2021-05-14] MEDS: PANTOPRAZOLE 40 MG/10 ML VIAL INJ IV SCH (09:58)
[2021-05-14] MEDS ORDERED: CHOLECALCIFEROL (VITD3) 2,000 UNIT CAP/TAB PO SCH (10:00)
[2021-05-14 10:33] LABS: Hemoglobin 8.2 g/dL (13.5-17.5)
[2021-05-14 10:49] LABS: BUN/Creatinine Ratio 17.7; Calcium 8.8 mg/dL (8.5-10.1); Magnesium 1.7 mg/dL (1.6-2.6); Potassium 5.4 mmol/L (3.5-5.1)
[2021-05-14] MEDS ORDERED: CHOL20007 PO (11:44)
[2021-05-14] MEDS ORDERED: MAGNESIUM SULFATE 1GM/100ML 100 ML IV ONE (11:45)
[2021-05-14] MEDS ORDERED: SODIUM ZIRCONIUM CYCL 10 GM PAK PO ONE (11:45)
== END 2021-05-14 15:39 | disposition home health service (06) | DRG 640 ==
LOC: ER 21:22 → TELE 05-12 10:07 → TELE-WESTW 05-13 10:52 → TELE-CENTR 05-13 20:47
PROVIDERS: ADMIT Internal Medicine; ATTEND Internal Medicine
DX: E87.1 Hypo-osmolality and hyponatremia (principal); N17.0 Acute kidney failure with tubular necrosis; I50.32 Chronic diastolic (congestive) heart failure; I13.0 Hypertensive heart and chronic kidney disease with heart failure and stage 1 through stage 4 chronic kidney disease, or unspecified chronic kidney disease; E11.65 Type 2 diabetes mellitus with hyperglycemia; N18.9 Chronic kidney disease, unspecified; K21.9 Gastro-esophageal reflux disease without esophagitis; F03.90 Unspecified dementia, unspecified severity, without behavioral disturbance, psychotic disturbance, mood disturbance, and anxiety; D64.89 Other specified anemias; E11.22 Type 2 diabetes mellitus with diabetic chronic kidney disease; E55.9 Vitamin D deficiency, unspecified; E78.5 Hyperlipidemia, unspecified; E86.1 Hypovolemia; N28.1 Cyst of kidney, acquired; N40.0 Benign prostatic hyperplasia without lower urinary tract symptoms; Z96.641 Presence of right artificial hip joint; Z53.29 Procedure and treatment not carried out because of patient's decision for other reasons; Z20.822 Contact with and (suspected) exposure to COVID-19; Z82.49 Family history of ischemic heart disease and other diseases of the circulatory system; Z89.511 Acquired absence of right leg below knee
CPT/HCPCS: 36415; 71250; 74176; 80048; 80053; 80061; 81001; 82306; 82728; 82962; 83036; 83540; 83550; 83735; 84154; 84443; 85014; 85018; 85025; 85610; 87426; 93005; 96361; 96374; 96375; C9113; G0378; J1815; J2405

== ENCOUNTER 2022-05-19 14:23 | Inpatient (IN) | payer OTHER, MEDICAID ==
[~2022-05-19] VITALS: Ht 172.7 cm; Wt 55.5 kg
[~2022-05-19 14:23] MED LIST changes: +ASCO500T11 PO; -ASPI-498 OR; -CHOL100047 PO; -CYAN100056 PO; -DICL1GEL26 TD; -DOCU-80 PO; +DONE1TAB88 PO; -FURO40TA4 PO; -GABA600T; +GABA800T97 PO; +LISI-716 PO; +METF-370 PO; -POTA10TA51 PO; -SITA100T7 PO
[2022-05-19] MEDS ORDERED: AZITHROMYCIN 500MG/ 250ML 250 ML IV ONE (14:45)
[2022-05-19] MEDS ORDERED: SODIUM CHLORIDE 0.9% 1,000 ML IVB ONE (14:45)
[2022-05-19] MEDS ORDERED: cefTRIAXone 1GM/50ML D5W 50 ML IV ONE (14:45)
[2022-05-19] MEDS ORDERED: SODIUM CHLORIDE 0.9% 1,000 ML IV ONE (14:45)
[2022-05-19 15:21] LABS: Basophils # (auto) 0 10 ^3/uL (0-0.2); Eosinophils # (auto) 0 10 ^3/uL (0-0.8); Lymphocytes # (auto) 0.3 10 ^3/uL (0.4-5.4); Lymphocytes % (auto) 4.2 % (10.0-50.0); Monocytes # (auto) 0.4 10 ^3/uL (0-1.3); Neutrophils # (auto) 7.5 10 ^3/uL (1.6-8.6); Nucleated Red Blood Cells % 0.1 %; Red Blood Cells 2.65 10^6/uL (4.5-5.90); White Blood Cell 8.2 10^3/uL (4.4-10.8)
[2022-05-19 15:23] LABS: Basophils % (auto) 0.4 % (0.0-2.0); Hematocrit 27.9 % (41.0-53.0); Hemoglobin 8.5 g/dL (13.5-17.5); Mean Corpuscular Hgb Conc. 30.5 g/dL (32.0-36.0); Mean Corpuscular Volume 105.2 fL (80.0-100.0); Monocytes % (auto) 4.5 % (0.0-12.0); Neutrophils % (auto) 90.9 % (37.0-80.0); Red Cell Distribution Width 15.8 % (11.8-14.3)
[2022-05-19 15:48] LABS: Albumin 3.3 g/dL (3.4-5.0); Anion Gap 21 (5-15); Blood Alcohol < 3.0 mg/dL (0-5); Calcium 8.3 mg/dL (8.5-10.1); Chloride 118 mmol/L (98-107); Glucose 175 mg/dL (74-106); Sodium 143 mmol/L (136-145)
[2022-05-19 15:50] LABS: Aspartate Aminotransferase 23 U/L (15-37); BUN/Creatinine Ratio 22.7; GFR African American 9 mL/min; GFR Non-African American 8 mL/min; INR 1.03 (0.9-1.15); Partial Thromboplastin Time 35.6 sec (24.6-33.4)
[2022-05-19 16:00] LABS: Alanine Aminotransferase 27 U/L (16-61); Alkaline Phosphatase 120 U/L (45-117); Bilirubin, Total 0.3 mg/dL (0.2-1.0); Total Protein 6.2 g/dL (6.4-8.2)
[2022-05-19 16:04] LABS: Carbon Dioxide 4 mmol/L (21-32); Potassium 8.1 mmol/L (3.5-5.1)
[2022-05-19 16:05] LABS: Blood Urea Nitrogen 170 mg/dL (7-18)
[2022-05-19] MEDS ORDERED: CALCIUM GLUC 1,000mg/50ml-NS 50 ML IV ONE (16:15)
[2022-05-19] MEDS ORDERED: ALBUTEROL SULF 2.5 MG/0.5ML(0.5%) NEB SOLN NEB ONE (16:15)
[2022-05-19] MEDS ORDERED: SODIUM ZIRCONIUM CYCL 10 GM PAK PO ONE (16:15)
[2022-05-19] MEDS ORDERED: FUROSEMIDE 20 MG/2 ML VIAL IV ONE ×2 (16:15→20:15)
[2022-05-19] MEDS ORDERED: InsuLIN REG 1unit/0.01ml Soln (100units/ml) IV ONE (16:15)
[2022-05-19] MEDS ORDERED: SODIUM BICARBONATE 8.4% INJ 50ML SYRINGE IV ONE (16:15)
[2022-05-19] MEDS ORDERED: DEXTROSE (50%) 50ML SYRG IV ONE (16:15)
[2022-05-19] MEDS ORDERED: MORPHINE SULFATE INJ 2 MG/ml SYRG IV PRN (16:45)
[2022-05-19] MEDS ORDERED: NITROGLYCERIN 0.4 MG SL TAB SL PRN (16:45)
[2022-05-19] MEDS ORDERED: PANTOPRAZOLE 40 MG/10 ML VIAL INJ IV ONE (16:45)
[2022-05-19] MEDS ORDERED: SODIUM BICARBONATE 8.4 % INJ 50ML VIAL IV ONE (17:00)
[2022-05-19] MEDS ORDERED: SODIUM BICARBONATE 50ML VIAL 150 ML in D5W 5% 1,000 ML IV ONE (17:00)
[2022-05-19] MEDS ORDERED: NOREPINEPHRINE 8 MG/250 ML IV ONE (17:10)
[2022-05-19 17:41] LABS: % Iron Saturation 112.3 % (20-55)
[2022-05-19] MEDS ORDERED: AMIODARONE 450mg/250ml AE 250 ML IV ONE (17:55)
[2022-05-19] MEDS ORDERED: AMIODARONE HCL (50 MG/ ML) 3 ML VIAL IV ONE (17:55)
[2022-05-19] MEDS ORDERED: AMIODARONE HCL 150 MG in D5W 5% 100 ML IV ONE ×2 (18:00)
[2022-05-19] MEDS ORDERED: NOREPINEPHRINE 8 MG/250ML KIT 250 ML IV SCH (18:00)
[2022-05-19] MEDS ORDERED: AMIODARONE 450mg/250ml AE 250 ML IV SCH ×2 (18:00→18:15)
[2022-05-19] MEDS: PHENYLEPHRINE IV 250 ML IV SCH ×2 (18:07→23:43)
[2022-05-19] MEDS ORDERED: PHENYLEPHRINE IV 250 ML IV ONE (18:13)
[2022-05-19] MEDS ORDERED: ETOMIDATE (2MG/ML) 20ML VIAL IV ONE ×2 (20:03→20:15)
[2022-05-19] MEDS ORDERED: ROCURONIUM 10MG/ML 10ML VIAL IV ONE ×2 (20:04→20:15)
[2022-05-19] MEDS ORDERED: methylPREDNISolone SOD SUCC 125 MG/2 ML VL IV STA (20:09)
[2022-05-19] MEDS: MIDAZOLAM DRIP 50 mg/50mL 50 ML IV SCH (20:15)
[2022-05-19] MEDS ORDERED: MIDAZOLAM DRIP 50 mg/50mL 50 ML IV ONE (20:19)
[2022-05-19] MEDS ORDERED: BUMETANIDE 2.5mg/10ml (0.25 mg/ml) INJ IV ONE (20:30)
[2022-05-19 20:36] VITALS: BP 118/63
[2022-05-19 20:58] VITALS: BP 128/35
[2022-05-19 21:37] LABS: BUN/Creatinine Ratio 23.4; Calcium 8.3 mg/dL (8.5-10.1); Potassium 3.7 mmol/L (3.5-5.1)
[2022-05-19] MEDS: SODIUM CHLOR 0.9% PF (SALINE LOCK) 10ML VIAL/SYR IV SCH (22:00)
[2022-05-19] MEDS: methylPREDNISolone SOD SUCC 125 MG/2 ML VL IV SCH (22:00)
[2022-05-19] MEDS: HEPARIN SODIUM (PORCINE) 5000 UNITS/ML 1ML VIAL SC SCH (22:00)
[2022-05-19 22:04] VITALS: BP 120/58
[2022-05-19] MEDS: fentaNYL Drip 2500mCg/250mlNS 250 ML IV SCH (23:46)
[2022-05-19 23:57] VITALS: BP 128/65
[2022-05-20] VITALS (33 sets, daily range): BP systolic 106–133; BP diastolic 48–71
[2022-05-20] MEDS ORDERED: AMIODARONE 450mg/250ml AE 250 ML IV SCH
[2022-05-20] MEDS: AMIODARONE 450mg/250ml AE 250 ML IV SCH ×2 (00:17→15:26)
[2022-05-20 00:20] LABS: Alcohol, Urine < 3.0 mg/dL (0-10); Amphetamine Screen, Urine NEGATIVE (NEGATIVE); Barbiturate Scree,Urine NEGATIVE (NEGATIVE); Benzodiazephine Screen, Urine NEGATIVE (NEGATIVE); Cannabinoid Screen, Urine NEGATIVE (NEGATIVE); Cocaine Screen, Urine NEGATIVE (NEGATIVE); Opiate Scree,Urine NEGATIVE (NEGATIVE); Phencyclidine Screen, Urine NEGATIVE (NEGATIVE)
[2022-05-20 00:52] LABS: Urine Bacteria NONE SEEN /hpf (None Seen); Urine Blood 3+ /uL (Negative); Urine Hyaline Cast FEW /lpf (0 - 2); Urine Specific Gravity 1.014 (1.001-1.035); Urine WBC 38 /hpf (0 - 3); Urine WBC Clumps PRESENT /hpf (None Seen)
[2022-05-20] MEDS: PHENYLEPHRINE IV 250 ML IV SCH (01:49)
[2022-05-20] MEDS: SODIUM CHLOR 0.9% PF (SALINE LOCK) 10ML VIAL/SYR IV SCH ×3 (06:00→22:18)
[2022-05-20 06:16] LABS: Hemoglobin 8.3 g/dL (13.5-17.5)
[2022-05-20 06:19] LABS: Hematocrit 25.1 % (41.0-53.0); Mean Corpuscular Hemoglobin 31.7 pg (28.0-32.0); Mean Corpuscular Hgb Conc. 32.9 g/dL (32.0-36.0); Mean Corpuscular Volume 96.3 fL (80.0-100.0); Red Blood Cells 2.61 10^6/uL (4.5-5.90); Red Cell Distribution Width 14.6 % (11.8-14.3); White Blood Cell 15.6 10^3/uL (4.4-10.8)
[2022-05-20 06:25] LABS: Potassium 4.4 mmol/L (3.5-5.1)
[2022-05-20 06:29] LABS: Albumin 2.8 g/dL (3.4-5.0); BUN/Creatinine Ratio 22.4; Calcium 7.5 mg/dL (8.5-10.1)
[2022-05-20 06:31] LABS: Bilirubin, Total 0.5 mg/dL (0.2-1.0); Total Protein 5.1 g/dL (6.4-8.2)
[2022-05-20 06:43] LABS: Basophils % (manual) 0 (0.0-2.0); Blast Cells 0; Eosinophils % (manual) 0 (0-7); Lymphocytes % (manual) 0 (10.0-50.0); Metamyelocytes % 0; Monocytes % (manual) 0 (0-12); Myelocytes % 0; Promyelocytes % 0; Reactive Lymphocytes 0
[2022-05-20] MEDS ORDERED: SODIUM CHL 0.9% 1000 ML BAG XX ONE (07:00)
[2022-05-20] MEDS ORDERED: FUROSEMIDE 100 MG/10ML VIAL IV ONE (08:15)
[2022-05-20] MEDS: PROPOFOL 100 ML IV SCH (09:45)
[2022-05-20 10:26] LABS: Band Neutrophils % (manual) 11
[2022-05-20] MEDS ORDERED: HEPARIN SODIUM (PORCINE) 5000 UNITS/ML 1ML VIAL ONE (10:36)
[2022-05-20] MEDS: PANTOPRAZOLE 40 MG/10 ML VIAL INJ IV SCH (10:39)
[2022-05-20] MEDS: methylPREDNISolone SOD SUCC 125 MG/2 ML VL IV SCH (10:40)
[2022-05-20] MEDS: HEPARIN SODIUM (PORCINE) 5000 UNITS/ML 1ML VIAL SC SCH ×2 (10:40→22:19)
[2022-05-20 10:43] LABS: Free T4 (Free Thyroxine) 1.07 ng/dL (0.89-1.76)
[2022-05-20 10:44] LABS: Folate (Folic Acid) 10.74 ng/mL (5.38-24)
[2022-05-20] MEDS: NOREPINEPHRINE BITARTRATE 32 MG in SODIUM CHL 0.9% 218 ML IV SCH (12:19)
[2022-05-20] MEDS: PHENYLEPHRINE INJ 80 MG in SODIUM CHL 0.9% 242 ML IV SCH (12:25)
[2022-05-20] MEDS: cefTRIAXone 1GM/50ML D5W 50 ML IV SCH (13:34)
[2022-05-20] MEDS: AZITHROMYCIN 500MG/ 250ML 250 ML IV SCH (14:58)
[2022-05-20 15:26] LABS: BUN/Creatinine Ratio 20.1; Calcium 6.9 mg/dL (8.5-10.1); Potassium 4.8 mmol/L (3.5-5.1)
[2022-05-20] MEDS ORDERED: FUROSEMIDE 40 MG/4 ML VIAL IV ONE (16:15)
[2022-05-20] MEDS ORDERED: SODIUM BICARBONATE 8.4 % INJ 50ML VIAL IV ONE (16:15)
[2022-05-20] MEDS: fentaNYL Drip 2500mCg/250mlNS 250 ML IV SCH (20:15)
[2022-05-20] MEDS: MIDAZOLAM DRIP 50 mg/50mL 50 ML IV SCH (22:15)
[2022-05-20] MEDS: methylPREDNISolone SOD SUCC 40 MG/ML VL IV SCH (22:20)
[2022-05-21] VITALS (102 sets, daily range): BP systolic 93–132; BP diastolic 56–74
[2022-05-21] MEDS: MIDAZOLAM DRIP 50 mg/50mL 50 ML IV SCH ×5 (02:02→23:45)
[2022-05-21] MEDS: fentaNYL Drip 2500mCg/250mlNS 250 ML IV SCH (02:03)
[2022-05-21] MEDS ORDERED: NOREPINEPHRINE 8 MG/250ML KIT 250 ML IV ONE (03:05)
[2022-05-21] MEDS: PROPOFOL 100 ML IV SCH (04:40)
[2022-05-21 06:06] LABS: Basophils # (auto) 0 10 ^3/uL (0-0.2); Eosinophils # (auto) 0 10 ^3/uL (0-0.8); Hemoglobin 8.4 g/dL (13.5-17.5); Lymphocytes # (auto) 0.2 10 ^3/uL (0.4-5.4); Monocytes # (auto) 0.4 10 ^3/uL (0-1.3); White Blood Cell 10.2 10^3/uL (4.4-10.8)
[2022-05-21 06:08] LABS: Basophils % (auto) 0.1 % (0.0-2.0); Hematocrit 25.2 % (41.0-53.0); Lymphocytes % (auto) 1.8 % (10.0-50.0); Mean Corpuscular Hemoglobin 32.4 pg (28.0-32.0); Mean Corpuscular Hgb Conc. 33.3 g/dL (32.0-36.0); Mean Corpuscular Volume 97.1 fL (80.0-100.0); Monocytes % (auto) 3.8 % (0.0-12.0); Neutrophils # (auto) 9.7 10 ^3/uL (1.6-8.6); Neutrophils % (auto) 94.3 % (37.0-80.0); Nucleated Red Blood Cells % 0.8 %; Red Cell Distribution Width 15.3 % (11.8-14.3)
[2022-05-21] MEDS: AMIODARONE 450mg/250ml AE 250 ML IV SCH ×2 (06:15→21:36)
[2022-05-21] MEDS: SODIUM CHLOR 0.9% PF (SALINE LOCK) 10ML VIAL/SYR IV SCH ×3 (06:15→21:36)
[2022-05-21 06:27] LABS: Albumin 2.5 g/dL (3.4-5.0); BUN/Creatinine Ratio 21.1; Calcium 7.1 mg/dL (8.5-10.1); Magnesium 1.6 mg/dL (1.6-2.6); Potassium 4.7 mmol/L (3.5-5.1)
[2022-05-21 06:30] LABS: Bilirubin, Total 0.3 mg/dL (0.2-1.0)
[2022-05-21] MEDS: NOREPINEPHRINE BITARTRATE 32 MG in SODIUM CHL 0.9% 218 ML IV SCH (06:55)
[2022-05-21] MEDS ORDERED: DEXTROSE (50%) 50ML SYRG IV PRN ×2 (07:00→12:45)
[2022-05-21] MEDS ORDERED: CALCIUM GLUC 1,000mg/50ml-NS 50 ML IV ONE (07:30)
[2022-05-21] MEDS ORDERED: ALBUTEROL SULF 2.5 MG/0.5ML(0.5%) NEB SOLN NEB ONE (07:30)
[2022-05-21] MEDS ORDERED: FUROSEMIDE 40 MG/4 ML VIAL IV ONE (07:30)
[2022-05-21] MEDS ORDERED: DEXTROSE (50%) 50ML SYRG IV ONE (07:30)
[2022-05-21] MEDS ORDERED: InsuLIN REG 1unit/0.01ml Soln (100units/ml) IV ONE (07:30)
[2022-05-21] MEDS ORDERED: ALBUTEROL SULF 2.5 MG/0.5ML(0.5%) NEB SOLN ONE (08:23)
[2022-05-21] MEDS: cefTRIAXone 1GM/50ML D5W 50 ML IV SCH (10:00)
[2022-05-21] MEDS: ACCU-CHEK COMFORT CURVE STRIP VI SCH ×4 (10:02→23:49)
[2022-05-21] MEDS: PANTOPRAZOLE 40 MG/10 ML VIAL INJ IV SCH (10:16)
[2022-05-21] MEDS: methylPREDNISolone SOD SUCC 40 MG/ML VL IV SCH (10:17)
[2022-05-21] MEDS: InsuLIN REG 1unit/0.01ml Soln (100units/ml) SC SCH ×4 (10:18→23:50)
[2022-05-21] MEDS: HEPARIN SODIUM (PORCINE) 5000 UNITS/ML 1ML VIAL SC SCH ×2 (10:25→21:43)
[2022-05-21] MEDS: AZITHROMYCIN 500MG/ 250ML 250 ML IV SCH (11:00)
[2022-05-21] MEDS: PHENYLEPHRINE INJ 80 MG in SODIUM CHL 0.9% 242 ML IV SCH (11:30)
[2022-05-21] MEDS ORDERED: ALBUMIN 25% 100 ML IV ONE (12:30)
[2022-05-21] MEDS ORDERED: InsuLIN REG 1unit/0.01ml Soln (100units/ml) SC ONE ×2 (12:45→13:00)
[2022-05-21] MEDS: DOPamine 1600MCG/ML D5W 250 ML IV SCH (18:28)
[2022-05-21 19:58] LABS: BUN/Creatinine Ratio 20.6; Calcium 7.6 mg/dL (8.5-10.1); Potassium 3.7 mmol/L (3.5-5.1)
[2022-05-22] VITALS (107 sets, daily range): BP systolic 86–129; BP diastolic 46–72
[2022-05-22] MEDS: fentaNYL Drip 2500mCg/250mlNS 250 ML IV SCH ×2 (02:23→15:32)
[2022-05-22 04:59] LABS: Basophils # (auto) 0 10 ^3/uL (0-0.2); Basophils % (auto) 0.2 % (0.0-2.0); Eosinophils # (auto) 0 10 ^3/uL (0-0.8); Eosinophils % (auto) 0.1 % (0.0-7.0); Hematocrit 23.6 % (41.0-53.0); Hemoglobin 7.8 g/dL (13.5-17.5); Monocytes # (auto) 0.5 10 ^3/uL (0-1.3)
[2022-05-22 05:01] LABS: Lymphocytes # (auto) 0.7 10 ^3/uL (0.4-5.4); Lymphocytes % (auto) 4.8 % (10.0-50.0); Mean Corpuscular Hemoglobin 31.7 pg (28.0-32.0); Mean Corpuscular Hgb Conc. 33.2 g/dL (32.0-36.0); Mean Corpuscular Volume 95.5 fL (80.0-100.0); Monocytes % (auto) 3.9 % (0.0-12.0); Neutrophils # (auto) 12.5 10 ^3/uL (1.6-8.6); Nucleated Red Blood Cells % 0.6 %; Red Blood Cells 2.47 10^6/uL (4.5-5.90); Red Cell Distribution Width 14.8 % (11.8-14.3); White Blood Cell 13.7 10^3/uL (4.4-10.8)
[2022-05-22 05:16] LABS: Albumin 2.7 g/dL (3.4-5.0); Calcium 7.4 mg/dL (8.5-10.1); Potassium 3.5 mmol/L (3.5-5.1)
[2022-05-22 05:20] LABS: Bilirubin, Total 0.4 mg/dL (0.2-1.0); Total Protein 5.2 g/dL (6.4-8.2)
[2022-05-22] MEDS: InsuLIN REG 1unit/0.01ml Soln (100units/ml) SC SCH ×4 (05:32→23:30)
[2022-05-22] MEDS: ACCU-CHEK COMFORT CURVE STRIP VI SCH ×4 (05:33→23:31)
[2022-05-22] MEDS: SODIUM CHLOR 0.9% PF (SALINE LOCK) 10ML VIAL/SYR IV SCH ×4 (06:00→21:51)
[2022-05-22] MEDS: PANTOPRAZOLE 40 MG/10 ML VIAL INJ IV SCH (09:34)
[2022-05-22] MEDS: cefTRIAXone 1GM/50ML D5W 50 ML IV SCH (09:36)
[2022-05-22] MEDS ORDERED: HEPARIN SODIUM (PORCINE) 5000 UNITS/ML 1ML VIAL ONE ×2 (09:44)
[2022-05-22] MEDS: PROPOFOL 100 ML IV SCH (09:45)
[2022-05-22] MEDS: HEPARIN SODIUM (PORCINE) 5000 UNITS/ML 1ML VIAL SC SCH ×2 (09:51→21:47)
[2022-05-22] MEDS: AZITHROMYCIN 500MG/ 250ML 250 ML IV SCH (10:28)
[2022-05-22] MEDS ORDERED: DEXTROSE (50%) 50ML SYRG IV PRN (11:00)
[2022-05-22] MEDS ORDERED: AMIODARONE HCL 200 MG TAB PO ONE (11:00)
[2022-05-22] MEDS ORDERED: DEXTROSE 50% SYRINGE 50 ML IV ONE (11:20)
[2022-05-22] MEDS: NOREPINEPHRINE BITARTRATE 32 MG in SODIUM CHL 0.9% 218 ML IV SCH (11:30)
[2022-05-22] MEDS: PHENYLEPHRINE INJ 80 MG in SODIUM CHL 0.9% 242 ML IV SCH (11:30)
[2022-05-22] MEDS: MIDAZOLAM DRIP 50 mg/50mL 50 ML IV SCH ×2 (11:36→23:29)
[2022-05-22 13:54] LABS: INR 1.06 (0.9-1.15)
[2022-05-22] MEDS: DOPamine 1600MCG/ML D5W 250 ML IV SCH (14:15)
[2022-05-22] MEDS ORDERED: Glucerna 1.2 Cal 1Liter BOTTLE GT SCH (15:00)
[2022-05-22] MEDS ORDERED: LIDOCAINE 1% (LOCAL ANESTH.) PF 5ml SDV ID ONE (15:45)
[2022-05-22] MEDS: ALBUMIN 25% 100 ML IV SCH ×2 (16:15→23:24)
[2022-05-22] MEDS ORDERED: BUMETANIDE 2.5mg/10ml (0.25 mg/ml) INJ IV ONE (16:15)
[2022-05-22] MEDS: FREE WATER GT SCH ×2 (18:30→21:51)
[2022-05-22] MEDS ORDERED: NOREPINEPHRINE 8 MG/250ML KIT 0 ML IV ONE (20:16)
[2022-05-22] MEDS: AMIODARONE HCL 200 MG TAB PO SCH (21:31)
[2022-05-23] VITALS (88 sets, daily range): BP systolic 84–135; BP diastolic 49–68
[2022-05-23] MEDS: FREE WATER GT SCH ×6 (02:00→21:56)
[2022-05-23 04:01] LABS: Basophils # (auto) 0 10 ^3/uL (0-0.2); Eosinophils # (auto) 0 10 ^3/uL (0-0.8); Lymphocytes # (auto) 0.5 10 ^3/uL (0.4-5.4); Lymphocytes % (auto) 6.7 % (10.0-50.0); Monocytes # (auto) 0.3 10 ^3/uL (0-1.3); Monocytes % (auto) 3.6 % (0.0-12.0)
[2022-05-23 04:03] LABS: Eosinophils % (auto) 0.3 % (0.0-7.0); Hematocrit 20.6 % (41.0-53.0); Mean Corpuscular Hemoglobin 31.3 pg (28.0-32.0); Mean Corpuscular Hgb Conc. 32.5 g/dL (32.0-36.0); Mean Corpuscular Volume 96.4 fL (80.0-100.0); Neutrophils # (auto) 6.9 10 ^3/uL (1.6-8.6); Neutrophils % (auto) 89.4 % (37.0-80.0); Nucleated Red Blood Cells % 0.2 %; Red Blood Cells 2.14 10^6/uL (4.5-5.90); Red Cell Distribution Width 14.4 % (11.8-14.3); White Blood Cell 7.8 10^3/uL (4.4-10.8)
[2022-05-23] MEDS: fentaNYL Drip 2500mCg/250mlNS 250 ML IV SCH (04:26)
[2022-05-23 04:32] LABS: Hemoglobin 6.7 g/dL (13.5-17.5)
[2022-05-23 04:36] LABS: Calcium 7.8 mg/dL (8.5-10.1); Potassium 4.1 mmol/L (3.5-5.1)
[2022-05-23 04:38] LABS: BUN/Creatinine Ratio 20.4; Bilirubin, Total 0.4 mg/dL (0.2-1.0); Total Protein 5.7 g/dL (6.4-8.2)
[2022-05-23 05:40] LABS: Basophils # (auto) 0 10 ^3/uL (0-0.2); Basophils % (auto) 0.1 % (0.0-2.0); Eosinophils # (auto) 0 10 ^3/uL (0-0.8); Eosinophils % (auto) 0.5 % (0.0-7.0); Hemoglobin 7.2 g/dL (13.5-17.5); Lymphocytes # (auto) 0.5 10 ^3/uL (0.4-5.4); Monocytes # (auto) 0.3 10 ^3/uL (0-1.3); White Blood Cell 7.5 10^3/uL (4.4-10.8)
[2022-05-23 05:42] LABS: Hematocrit 22.9 % (41.0-53.0); Lymphocytes % (auto) 7.1 % (10.0-50.0); Mean Corpuscular Hemoglobin 31.2 pg (28.0-32.0); Mean Corpuscular Hgb Conc. 31.6 g/dL (32.0-36.0); Mean Corpuscular Volume 98.8 fL (80.0-100.0); Monocytes % (auto) 3.8 % (0.0-12.0); Neutrophils # (auto) 6.6 10 ^3/uL (1.6-8.6); Neutrophils % (auto) 88.5 % (37.0-80.0); Nucleated Red Blood Cells % 0.1 %; Red Blood Cells 2.32 10^6/uL (4.5-5.90); Red Cell Distribution Width 14.9 % (11.8-14.3)
[2022-05-23 05:57] LABS: BUN/Creatinine Ratio 21.1; Calcium 7.9 mg/dL (8.5-10.1); Potassium 4.8 mmol/L (3.5-5.1)
[2022-05-23] MEDS: InsuLIN REG 1unit/0.01ml Soln (100units/ml) SC SCH ×4 (06:00→23:30)
[2022-05-23] MEDS: SODIUM CHLOR 0.9% PF (SALINE LOCK) 10ML VIAL/SYR IV SCH ×5 (06:00→21:55)
[2022-05-23] MEDS: ACCU-CHEK COMFORT CURVE STRIP VI SCH ×4 (06:00→23:55)
[2022-05-23] MEDS: ALBUMIN 25% 100 ML IV SCH ×3 (07:44→12:31)
[2022-05-23] MEDS: cefTRIAXone 1GM/50ML D5W 50 ML IV SCH (08:49)
[2022-05-23] MEDS: PROPOFOL 100 ML IV SCH (09:45)
[2022-05-23] MEDS: HEPARIN SODIUM (PORCINE) 5000 UNITS/ML 1ML VIAL SC SCH ×2 (10:00→21:50)
[2022-05-23] MEDS: PANTOPRAZOLE 40 MG/10 ML VIAL INJ IV SCH (10:00)
[2022-05-23] MEDS: AMIODARONE HCL 200 MG TAB PO SCH ×2 (10:00→21:50)
[2022-05-23] MEDS: AZITHROMYCIN 500MG/ 250ML 250 ML IV SCH (10:00)
[2022-05-23] MEDS: PHENYLEPHRINE INJ 80 MG in SODIUM CHL 0.9% 242 ML IV SCH (11:30)
[2022-05-23] MEDS ORDERED: SODIUM CHL 0.9% 1000 ML BAG XX ONE (11:30)
[2022-05-23] MEDS: MIDAZOLAM DRIP 50 mg/50mL 50 ML IV SCH (12:41)
[2022-05-23] MEDS: DOPamine 1600MCG/ML D5W 250 ML IV SCH (14:15)
[2022-05-23] MEDS ORDERED: EPOETIN ALFA-EPBX 10,000 UNIT/1ML VIAL SC ONE (21:00)
[2022-05-23] MEDS: NOREPINEPHRINE BITARTRATE 32 MG in SODIUM CHL 0.9% 218 ML IV SCH (23:29)
[2022-05-24] VITALS (102 sets, daily range): BP systolic 82–123; BP diastolic 46–72
[2022-05-24] MEDS: FREE WATER GT SCH ×6 (01:39→22:00)
[2022-05-24] MEDS: SODIUM CHLOR 0.9% PF (SALINE LOCK) 10ML VIAL/SYR IV SCH ×5 (05:50→22:00)
[2022-05-24 05:56] LABS: Basophils # (auto) 0 10 ^3/uL (0-0.2); Basophils % (auto) 0.1 % (0.0-2.0); Eosinophils # (auto) 0.1 10 ^3/uL (0-0.8); Hematocrit 20.9 % (41.0-53.0); Lymphocytes # (auto) 0.5 10 ^3/uL (0.4-5.4); Lymphocytes % (auto) 8.7 % (10.0-50.0); Monocytes # (auto) 0.3 10 ^3/uL (0-1.3)
[2022-05-24] MEDS: InsuLIN REG 1unit/0.01ml Soln (100units/ml) SC SCH ×3 (05:59→18:00)
[2022-05-24] MEDS: ACCU-CHEK COMFORT CURVE STRIP VI SCH ×3 (06:00→19:20)
[2022-05-24 06:03] LABS: Eosinophils % (auto) 1.6 % (0.0-7.0); Mean Corpuscular Hemoglobin 31.5 pg (28.0-32.0); Mean Corpuscular Hgb Conc. 32.6 g/dL (32.0-36.0); Mean Corpuscular Volume 96.5 fL (80.0-100.0); Monocytes % (auto) 5.5 % (0.0-12.0); Neutrophils # (auto) 4.7 10 ^3/uL (1.6-8.6); Neutrophils % (auto) 84.1 % (37.0-80.0); Nucleated Red Blood Cells % 0.3 %; Red Blood Cells 2.16 10^6/uL (4.5-5.90); Red Cell Distribution Width 13.9 % (11.8-14.3); White Blood Cell 5.6 10^3/uL (4.4-10.8)
[2022-05-24 06:15] LABS: Albumin 3.3 g/dL (3.4-5.0); BUN/Creatinine Ratio 19.4; Potassium 3.9 mmol/L (3.5-5.1)
[2022-05-24 06:17] LABS: Bilirubin, Total 0.7 mg/dL (0.2-1.0); Total Protein 5.7 g/dL (6.4-8.2)
[2022-05-24 06:32] LABS: Hemoglobin 6.8 g/dL (13.5-17.5)
[2022-05-24 07:30] LABS: Basophils # (auto) 0 10 ^3/uL (0-0.2); Basophils % (auto) 0.1 % (0.0-2.0); Eosinophils # (auto) 0.1 10 ^3/uL (0-0.8); Eosinophils % (auto) 1.4 % (0.0-7.0); Hematocrit 25.4 % (41.0-53.0); Hemoglobin 8.3 g/dL (13.5-17.5); Lymphocytes # (auto) 0.6 10 ^3/uL (0.4-5.4); Lymphocytes % (auto) 8.8 % (10.0-50.0); Mean Corpuscular Hemoglobin 31.4 pg (28.0-32.0); Mean Corpuscular Hgb Conc. 32.8 g/dL (32.0-36.0); Mean Corpuscular Volume 95.7 fL (80.0-100.0); Monocytes # (auto) 0.4 10 ^3/uL (0-1.3); Monocytes % (auto) 5.7 % (0.0-12.0); Neutrophils # (auto) 5.3 10 ^3/uL (1.6-8.6); Nucleated Red Blood Cells % 0.3 %; Red Blood Cells 2.65 10^6/uL (4.5-5.90); White Blood Cell 6.3 10^3/uL (4.4-10.8)
[2022-05-24] MEDS: cefTRIAXone 1GM/50ML D5W 50 ML IV SCH (09:02)
[2022-05-24] MEDS: PANTOPRAZOLE 40 MG/10 ML VIAL INJ IV SCH (09:03)
[2022-05-24] MEDS: AMIODARONE HCL 200 MG TAB PO SCH ×2 (09:03→21:55)
[2022-05-24] MEDS: HEPARIN SODIUM (PORCINE) 5000 UNITS/ML 1ML VIAL SC SCH ×2 (09:23→22:00)
[2022-05-24] MEDS: fentaNYL Drip 2500mCg/250mlNS 250 ML IV SCH (09:36)
[2022-05-24] MEDS: PROPOFOL 100 ML IV SCH (09:45)
[2022-05-24] MEDS: AZITHROMYCIN 500MG/ 250ML 250 ML IV SCH (10:37)
[2022-05-24] MEDS: PHENYLEPHRINE INJ 80 MG in SODIUM CHL 0.9% 242 ML IV SCH (10:38)
[2022-05-24] MEDS: NOREPINEPHRINE BITARTRATE 32 MG in SODIUM CHL 0.9% 218 ML IV SCH (11:30)
[2022-05-24] MEDS ORDERED: FUROSEMIDE 100 MG/10ML VIAL IV ONE (12:30)
[2022-05-24] MEDS: DOPamine 1600MCG/ML D5W 250 ML IV SCH (14:00)
[2022-05-24] MEDS: MIDAZOLAM DRIP 50 mg/50mL 50 ML IV SCH (20:15)
[2022-05-25] VITALS (101 sets, daily range): BP systolic 75–138; BP diastolic 45–79
[2022-05-25] MEDS: FREE WATER GT SCH ×6 (02:00→21:40)
[2022-05-25 05:22] LABS: Basophils # (auto) 0 10 ^3/uL (0-0.2); Eosinophils # (auto) 0 10 ^3/uL (0-0.8); Eosinophils % (auto) 0.3 % (0.0-7.0); Hemoglobin 8.1 g/dL (13.5-17.5); Monocytes # (auto) 0.6 10 ^3/uL (0-1.3)
[2022-05-25 05:25] LABS: Basophils % (auto) 0.1 % (0.0-2.0); Hematocrit 24.8 % (41.0-53.0); Lymphocytes # (auto) 0.4 10 ^3/uL (0.4-5.4); Lymphocytes % (auto) 3.1 % (10.0-50.0); Mean Corpuscular Hemoglobin 31.4 pg (28.0-32.0); Mean Corpuscular Hgb Conc. 32.8 g/dL (32.0-36.0); Monocytes % (auto) 5.3 % (0.0-12.0); Neutrophils # (auto) 10.5 10 ^3/uL (1.6-8.6); Neutrophils % (auto) 91.2 % (37.0-80.0); Nucleated Red Blood Cells % 0.1 %; Red Blood Cells 2.59 10^6/uL (4.5-5.90); Red Cell Distribution Width 14.3 % (11.8-14.3); White Blood Cell 11.5 10^3/uL (4.4-10.8)
[2022-05-25] MEDS: SODIUM CHLOR 0.9% PF (SALINE LOCK) 10ML VIAL/SYR IV SCH ×5 (05:42→21:40)
[2022-05-25] MEDS: InsuLIN REG 1unit/0.01ml Soln (100units/ml) SC SCH ×4 (05:43→18:39)
[2022-05-25] MEDS: ACCU-CHEK COMFORT CURVE STRIP VI SCH ×4 (05:49→18:34)
[2022-05-25 08:04] LABS: Albumin 3.3 g/dL (3.4-5.0); Anion Gap 13 (5-15); Calcium 8.5 mg/dL (8.5-10.1); Carbon Dioxide 27 mmol/L (21-32); Chloride 100 mmol/L (98-107); Glucose 187 mg/dL (74-106); Potassium 4.9 mmol/L (3.5-5.1); Sodium 140 mmol/L (136-145)
[2022-05-25 08:05] LABS: Alanine Aminotransferase 35 U/L (16-61); Aspartate Aminotransferase 15 U/L (15-37); GFR African American 18 mL/min; GFR Non-African American 15 mL/min
[2022-05-25 08:08] LABS: Alkaline Phosphatase 80 U/L (45-117); Bilirubin, Total 0.4 mg/dL (0.2-1.0); Total Protein 5.9 g/dL (6.4-8.2)
[2022-05-25 08:11] LABS: Blood Urea Nitrogen 87 mg/dL (7-18)
[2022-05-25] MEDS: cefTRIAXone 1GM/50ML D5W 50 ML IV SCH (09:15)
[2022-05-25] MEDS: AMIODARONE HCL 200 MG TAB PO SCH ×2 (09:16→21:40)
[2022-05-25] MEDS: PANTOPRAZOLE 40 MG/10 ML VIAL INJ IV SCH (09:16)
[2022-05-25] MEDS: HEPARIN SODIUM (PORCINE) 5000 UNITS/ML 1ML VIAL SC SCH ×2 (09:23→21:39)
[2022-05-25] MEDS: AZITHROMYCIN 500MG/ 250ML 250 ML IV SCH (10:07)
[2022-05-25] MEDS: PHENYLEPHRINE INJ 80 MG in SODIUM CHL 0.9% 242 ML IV SCH (11:30)
[2022-05-25] MEDS: NOREPINEPHRINE BITARTRATE 32 MG in SODIUM CHL 0.9% 218 ML IV SCH (11:30)
[2022-05-25] MEDS: PROPOFOL 100 ML IV SCH ×2 (13:51→21:40)
[2022-05-25] MEDS: DOPamine 1600MCG/ML D5W 250 ML IV SCH ×2 (13:53→14:35)
[2022-05-25] MEDS: fentaNYL Drip 2500mCg/250mlNS 250 ML IV SCH (20:15)
[2022-05-25] MEDS: MIDAZOLAM DRIP 50 mg/50mL 50 ML IV SCH (20:15)
[2022-05-26] VITALS (101 sets, daily range): BP systolic 94–145; BP diastolic 57–77
[2022-05-26] MEDS: FREE WATER GT SCH ×6 (02:00→22:00)
[2022-05-26 04:54] LABS: Basophils # (auto) 0 10 ^3/uL (0-0.2); Eosinophils # (auto) 0.1 10 ^3/uL (0-0.8); Hemoglobin 7.4 g/dL (13.5-17.5); Lymphocytes # (auto) 0.3 10 ^3/uL (0.4-5.4); Monocytes # (auto) 0.4 10 ^3/uL (0-1.3)
[2022-05-26 04:55] LABS: Eosinophils % (auto) 1.4 % (0.0-7.0); Hematocrit 22.4 % (41.0-53.0); Lymphocytes % (auto) 4.5 % (10.0-50.0); Mean Corpuscular Hemoglobin 31.8 pg (28.0-32.0); Mean Corpuscular Hgb Conc. 33.1 g/dL (32.0-36.0); Monocytes % (auto) 5.7 % (0.0-12.0); Neutrophils # (auto) 6.7 10 ^3/uL (1.6-8.6); Neutrophils % (auto) 88.4 % (37.0-80.0); Red Blood Cells 2.34 10^6/uL (4.5-5.90); Red Cell Distribution Width 14.1 % (11.8-14.3); White Blood Cell 7.6 10^3/uL (4.4-10.8)
[2022-05-26 05:22] LABS: Calcium 8.9 mg/dL (8.5-10.1); Potassium 4.4 mmol/L (3.5-5.1)
[2022-05-26 05:24] LABS: BUN/Creatinine Ratio 22.5
[2022-05-26] MEDS: InsuLIN REG 1unit/0.01ml Soln (100units/ml) SC SCH ×4 (06:00→18:05)
[2022-05-26] MEDS: SODIUM CHLOR 0.9% PF (SALINE LOCK) 10ML VIAL/SYR IV SCH ×5 (06:00→22:00)
[2022-05-26] MEDS: ACCU-CHEK COMFORT CURVE STRIP VI SCH ×4 (06:00→17:33)
[2022-05-26] MEDS ORDERED: SODIUM CHL 0.9% 1000 ML BAG XX ONE (07:00)
[2022-05-26] MEDS: ALBUMIN 25% 100 ML IV PRN ×2 (07:10→08:20)
[2022-05-26 07:39] LABS: Hepatitis A Ab IgM Negative; Hepatitis B Core IgM Negative; Hepatitis C Antibody Negative (Negative)
[2022-05-26] MEDS: PROPOFOL 100 ML IV SCH (09:03)
[2022-05-26] MEDS: cefTRIAXone 1GM/50ML D5W 50 ML IV SCH (10:03)
[2022-05-26] MEDS: AMIODARONE HCL 200 MG TAB PO SCH ×2 (10:04→22:00)
[2022-05-26] MEDS: PANTOPRAZOLE 40 MG/10 ML VIAL INJ IV SCH (10:04)
[2022-05-26] MEDS: PHENYLEPHRINE INJ 80 MG in SODIUM CHL 0.9% 242 ML IV SCH (11:30)
[2022-05-26] MEDS: NOREPINEPHRINE BITARTRATE 32 MG in SODIUM CHL 0.9% 218 ML IV SCH (11:30)
[2022-05-26] MEDS: AZITHROMYCIN 500MG/ 250ML 250 ML IV SCH (11:33)
[2022-05-26] MEDS: HEPARIN SODIUM (PORCINE) 5000 UNITS/ML 1ML VIAL SC SCH ×2 (11:34→22:00)
[2022-05-26] MEDS: DOPamine 1600MCG/ML D5W 250 ML IV SCH (14:10)
[2022-05-26] MEDS: fentaNYL Drip 2500mCg/250mlNS 250 ML IV SCH (20:15)
[2022-05-26] MEDS: MIDAZOLAM DRIP 50 mg/50mL 50 ML IV SCH (20:15)
[2022-05-26] MEDS ORDERED: EPOETIN ALFA-EPBX 10,000 UNIT/1ML VIAL SC ONE (21:00)
[2022-05-27] VITALS (94 sets, daily range): BP systolic 97–156; BP diastolic 60–83
[2022-05-27] MEDS: ACETAMINOPHEN 325 MG TAB PO PRN (00:22)
[2022-05-27] MEDS: FREE WATER GT SCH ×6 (02:00→22:00)
[2022-05-27 05:10] LABS: INR 1.03 (0.9-1.15); Partial Thromboplastin Time 33.3 sec (24.6-33.4)
[2022-05-27 05:16] LABS: Calcium 8.9 mg/dL (8.5-10.1); Potassium 3.8 mmol/L (3.5-5.1)
[2022-05-27 05:18] LABS: BUN/Creatinine Ratio 20.5
[2022-05-27] MEDS: ACCU-CHEK COMFORT CURVE STRIP VI SCH ×4 (06:00→17:11)
[2022-05-27] MEDS: SODIUM CHLOR 0.9% PF (SALINE LOCK) 10ML VIAL/SYR IV SCH ×5 (06:00→22:00)
[2022-05-27] MEDS: InsuLIN REG 1unit/0.01ml Soln (100units/ml) SC SCH ×4 (06:00→17:37)
[2022-05-27 07:33] LABS: Basophils # (auto) 0 10 ^3/uL (0-0.2); Eosinophils # (auto) 0 10 ^3/uL (0-0.8); Lymphocytes # (auto) 0.4 10 ^3/uL (0.4-5.4); Monocytes # (auto) 0.5 10 ^3/uL (0-1.3); Neutrophils % (auto) 89.5 % (37.0-80.0); Red Blood Cells 2.35 10^6/uL (4.5-5.90)
[2022-05-27 07:35] LABS: Basophils % (auto) 0.2 % (0.0-2.0); Eosinophils % (auto) 0.3 % (0.0-7.0); Hematocrit 22.7 % (41.0-53.0); Hemoglobin 7.3 g/dL (13.5-17.5); Lymphocytes % (auto) 4.4 % (10.0-50.0); Mean Corpuscular Hemoglobin 31.1 pg (28.0-32.0); Mean Corpuscular Hgb Conc. 32.3 g/dL (32.0-36.0); Mean Corpuscular Volume 96.4 fL (80.0-100.0); Monocytes % (auto) 5.6 % (0.0-12.0); Neutrophils # (auto) 7.5 10 ^3/uL (1.6-8.6); Nucleated Red Blood Cells % 0.1 %; Red Cell Distribution Width 14.2 % (11.8-14.3); White Blood Cell 8.4 10^3/uL (4.4-10.8)
[2022-05-27] MEDS: cefTRIAXone 1GM/50ML D5W 50 ML IV SCH (08:37)
[2022-05-27] MEDS: AZITHROMYCIN 500MG/ 250ML 250 ML IV SCH (09:24)
[2022-05-27] MEDS: PANTOPRAZOLE 40 MG/10 ML VIAL INJ IV SCH (09:25)
[2022-05-27] MEDS: HEPARIN SODIUM (PORCINE) 5000 UNITS/ML 1ML VIAL SC SCH ×2 (09:25→22:00)
[2022-05-27] MEDS: AMIODARONE HCL 200 MG TAB PO SCH ×2 (09:25→22:00)
[2022-05-27] MEDS: PROPOFOL 100 ML IV SCH (09:45)
[2022-05-27] MEDS ORDERED: VERAPAMIL 2.5MG/ML INJ 2ML VIAL IV ONE (11:29)
[2022-05-27] MEDS ORDERED: ANGIOMAX 250 MG VIAL IV ONE (11:29)
[2022-05-27] MEDS ORDERED: HEPARIN SODIUM (PORCINE) 5000 UNITS/ML 1ML VIAL ONE (11:29)
[2022-05-27] MEDS ORDERED: IODIXANOL 320MG/ML 100ML BTL IV ONE (11:30)
[2022-05-27] MEDS: NOREPINEPHRINE BITARTRATE 32 MG in SODIUM CHL 0.9% 218 ML IV SCH (11:30)
[2022-05-27] MEDS ORDERED: fentaNYL CITRATE 100 MCG/2 ML VL ONE (11:30)
[2022-05-27] MEDS: PHENYLEPHRINE INJ 80 MG in SODIUM CHL 0.9% 242 ML IV SCH (11:30)
[2022-05-27] MEDS ORDERED: MIDAZOLAM HCL 2MG/2ML 2ml VIAL (1mg/ml) ONE (11:30)
[2022-05-27] MEDS ORDERED: SODIUM CHL 0.9% 0 ML ONE (11:30)
[2022-05-27] MEDS ORDERED: LIDOCAINE 2%HCL (LOCAL ANESTH.) INJ 20ML MDV ONE (11:31)
[2022-05-27] MEDS: DOPamine 1600MCG/ML D5W 250 ML IV SCH (14:15)
[2022-05-27] MEDS: fentaNYL Drip 2500mCg/250mlNS 250 ML IV SCH (20:15)
[2022-05-27] MEDS: MIDAZOLAM DRIP 50 mg/50mL 50 ML IV SCH (20:15)
[2022-05-28] VITALS (74 sets, daily range): BP systolic 102–144; BP diastolic 56–89
[2022-05-28] MEDS: FREE WATER GT SCH ×6 (02:00→21:49)
[2022-05-28] MEDS: ACCU-CHEK COMFORT CURVE STRIP VI SCH ×5 (05:37→23:32)
[2022-05-28] MEDS: SODIUM CHLOR 0.9% PF (SALINE LOCK) 10ML VIAL/SYR IV SCH ×5 (05:37→21:49)
[2022-05-28] MEDS: InsuLIN REG 1unit/0.01ml Soln (100units/ml) SC SCH ×5 (05:38→23:34)
[2022-05-28 05:58] LABS: Potassium 3.9 mmol/L (3.5-5.1)
[2022-05-28 06:06] LABS: BUN/Creatinine Ratio 21.2; Calcium 9.5 mg/dL (8.5-10.1)
[2022-05-28 06:07] LABS: Basophils # (auto) 0 10 ^3/uL (0-0.2); Basophils % (auto) 0.1 % (0.0-2.0); Eosinophils # (auto) 0 10 ^3/uL (0-0.8); Monocytes # (auto) 0.6 10 ^3/uL (0-1.3); Monocytes % (auto) 5.9 % (0.0-12.0); Red Blood Cells 2.42 10^6/uL (4.5-5.90)
[2022-05-28 06:10] LABS: Eosinophils % (auto) 0.2 % (0.0-7.0); Hematocrit 23.3 % (41.0-53.0); Hemoglobin 7.6 g/dL (13.5-17.5); Lymphocytes # (auto) 0.3 10 ^3/uL (0.4-5.4); Mean Corpuscular Hemoglobin 31.5 pg (28.0-32.0); Mean Corpuscular Hgb Conc. 32.6 g/dL (32.0-36.0); Mean Corpuscular Volume 96.6 fL (80.0-100.0); Neutrophils # (auto) 9.6 10 ^3/uL (1.6-8.6); Neutrophils % (auto) 90.8 % (37.0-80.0); Red Cell Distribution Width 14.1 % (11.8-14.3); White Blood Cell 10.6 10^3/uL (4.4-10.8)
[2022-05-28] MEDS ORDERED: SODIUM CHL 0.9% 1000 ML BAG XX ONE (07:00)
[2022-05-28] MEDS: cefTRIAXone 1GM/50ML D5W 50 ML IV SCH (08:53)
[2022-05-28] MEDS: PROPOFOL 100 ML IV SCH (09:27)
[2022-05-28] MEDS: AMIODARONE HCL 200 MG TAB PO SCH ×2 (09:28→21:49)
[2022-05-28] MEDS: PANTOPRAZOLE 40 MG/10 ML VIAL INJ IV SCH (11:03)
[2022-05-28] MEDS: HEPARIN SODIUM (PORCINE) 5000 UNITS/ML 1ML VIAL SC SCH ×2 (11:04→22:00)
[2022-05-28] MEDS: PHENYLEPHRINE INJ 80 MG in SODIUM CHL 0.9% 242 ML IV SCH (11:30)
[2022-05-28] MEDS: NOREPINEPHRINE BITARTRATE 32 MG in SODIUM CHL 0.9% 218 ML IV SCH (11:30)
[2022-05-28] MEDS: DOPamine 1600MCG/ML D5W 250 ML IV SCH ×2 (14:15→21:00)
[2022-05-28] MEDS: ALBUMIN 25% 100 ML IV PRN (14:29)
[2022-05-28] MEDS: IPRATROPIUM BROM 0.5 MG/2.5ML INH SOL NEB SCH (17:52)
[2022-05-28] MEDS: ALBUTEROL SULF 2.5 MG/0.5ML(0.5%) NEB SOLN NEB SCH (17:53)
[2022-05-28] MEDS ORDERED: EPOETIN ALFA-EPBX 10,000 UNIT/1ML VIAL SC ONE (21:00)
[2022-05-29] VITALS (55 sets, daily range): BP systolic 90–124; BP diastolic 49–87
[2022-05-29] MEDS: IPRATROPIUM BROM 0.5 MG/2.5ML INH SOL NEB SCH ×7 (00:04→22:32)
[2022-05-29] MEDS: ALBUTEROL SULF 2.5 MG/0.5ML(0.5%) NEB SOLN NEB SCH ×7 (00:04→22:32)
[2022-05-29] MEDS: FREE WATER GT SCH ×6 (02:00→21:56)
[2022-05-29 05:34] LABS: Basophils # (auto) 0 10 ^3/uL (0-0.2); Eosinophils # (auto) 0 10 ^3/uL (0-0.8); Eosinophils % (auto) 0.1 % (0.0-7.0); Lymphocytes # (auto) 0.3 10 ^3/uL (0.4-5.4); Mean Corpuscular Volume 98.3 fL (80.0-100.0); Monocytes # (auto) 0.5 10 ^3/uL (0-1.3)
[2022-05-29 05:38] LABS: Basophils % (auto) 0.1 % (0.0-2.0); Hematocrit 21.1 % (41.0-53.0); Lymphocytes % (auto) 3.7 % (10.0-50.0); Mean Corpuscular Hemoglobin 32.2 pg (28.0-32.0); Mean Corpuscular Hgb Conc. 32.7 g/dL (32.0-36.0); Monocytes % (auto) 5.5 % (0.0-12.0); Neutrophils # (auto) 7.9 10 ^3/uL (1.6-8.6); Neutrophils % (auto) 90.6 % (37.0-80.0); Red Blood Cells 2.15 10^6/uL (4.5-5.90); Red Cell Distribution Width 14.5 % (11.8-14.3); White Blood Cell 8.7 10^3/uL (4.4-10.8)
[2022-05-29 05:44] LABS: Hemoglobin 6.9 g/dL (13.5-17.5)
[2022-05-29] MEDS: ACCU-CHEK COMFORT CURVE STRIP VI SCH ×4 (05:45→23:53)
[2022-05-29] MEDS: InsuLIN REG 1unit/0.01ml Soln (100units/ml) SC SCH ×4 (05:46→23:53)
[2022-05-29 05:53] LABS: Calcium 9.6 mg/dL (8.5-10.1); Potassium 3.7 mmol/L (3.5-5.1)
[2022-05-29 05:55] LABS: BUN/Creatinine Ratio 21.8
[2022-05-29] MEDS: SODIUM CHLOR 0.9% PF (SALINE LOCK) 10ML VIAL/SYR IV SCH ×3 (06:00→21:56)
[2022-05-29] MEDS: PANTOPRAZOLE 40 MG/10 ML VIAL INJ IV SCH (09:59)
[2022-05-29] MEDS: AMIODARONE HCL 200 MG TAB PO SCH ×2 (09:59→22:30)
[2022-05-29] MEDS: PHENYLEPHRINE INJ 80 MG in SODIUM CHL 0.9% 242 ML IV SCH (10:00)
[2022-05-29] MEDS: NOREPINEPHRINE BITARTRATE 32 MG in SODIUM CHL 0.9% 218 ML IV SCH (10:00)
[2022-05-29] MEDS: HEPARIN SODIUM (PORCINE) 5000 UNITS/ML 1ML VIAL SC SCH ×2 (10:00→22:35)
[2022-05-30] VITALS (47 sets, daily range): BP systolic 96–124; BP diastolic 51–76
[2022-05-30] MEDS: FREE WATER GT SCH ×6 (01:47→21:59)
[2022-05-30] MEDS: IPRATROPIUM BROM 0.5 MG/2.5ML INH SOL NEB SCH ×5 (02:46→18:36)
[2022-05-30] MEDS: ALBUTEROL SULF 2.5 MG/0.5ML(0.5%) NEB SOLN NEB SCH ×5 (02:46→18:36)
[2022-05-30 05:35] LABS: Basophils # (auto) 0 10 ^3/uL (0-0.2); Eosinophils # (auto) 0 10 ^3/uL (0-0.8); Eosinophils % (auto) 0.3 % (0.0-7.0); Lymphocytes # (auto) 0.4 10 ^3/uL (0.4-5.4); Monocytes # (auto) 0.7 10 ^3/uL (0-1.3); Red Blood Cells 2.49 10^6/uL (4.5-5.90)
[2022-05-30] MEDS: ACCU-CHEK COMFORT CURVE STRIP VI SCH ×5 (05:46→23:55)
[2022-05-30 05:48] LABS: Basophils % (auto) 0.2 % (0.0-2.0); Hematocrit 24.1 % (41.0-53.0); Lymphocytes % (auto) 4.1 % (10.0-50.0); Mean Corpuscular Hgb Conc. 32.9 g/dL (32.0-36.0); Neutrophils # (auto) 9.1 10 ^3/uL (1.6-8.6); Neutrophils % (auto) 88.4 % (37.0-80.0); Red Cell Distribution Width 14.5 % (11.8-14.3); White Blood Cell 10.2 10^3/uL (4.4-10.8)
[2022-05-30] MEDS: InsuLIN REG 1unit/0.01ml Soln (100units/ml) SC SCH ×5 (05:54→23:55)
[2022-05-30 06:00] LABS: Potassium 3.3 mmol/L (3.5-5.1)
[2022-05-30 06:07] LABS: BUN/Creatinine Ratio 23.5; Calcium 9.5 mg/dL (8.5-10.1)
[2022-05-30] MEDS ORDERED: CATHFLO ACTIVASE (ALTEPLASE) 2 MG VIAL IV ONE (06:30)
[2022-05-30] MEDS ORDERED: SODIUM CHL 0.9% 1000 ML BAG XX ONE (07:00)
[2022-05-30] MEDS ORDERED: POTASSIUM CHL 20MEQ/100ML 100 ML IV ONE (09:30)
[2022-05-30] MEDS: HEPARIN SODIUM (PORCINE) 5000 UNITS/ML 1ML VIAL SC SCH ×2 (11:24→22:45)
[2022-05-30] MEDS: PANTOPRAZOLE 40 MG/10 ML VIAL INJ IV SCH (11:24)
[2022-05-30] MEDS: AMIODARONE HCL 200 MG TAB PO SCH ×2 (11:25→22:11)
[2022-05-30] MEDS: SODIUM CHLOR 0.9% PF (SALINE LOCK) 10ML VIAL/SYR IV SCH ×2 (11:25→21:59)
[2022-05-30] MEDS: NOREPINEPHRINE BITARTRATE 32 MG in SODIUM CHL 0.9% 218 ML IV SCH (11:30)
[2022-05-30] MEDS: PHENYLEPHRINE INJ 80 MG in SODIUM CHL 0.9% 242 ML IV SCH (11:30)
[2022-05-30] MEDS: BUMETANIDE INJECTION 12.5 MG in GIVE UN-DILUTED 0 ML IV SCH (14:15)
[2022-05-30] MEDS ORDERED: DEXTROSE (50%) 50ML SYRG IV SCH (20:00)
[2022-05-30] MEDS ORDERED: CLINIMIX PER PHARMACY IV NR (20:00)
[2022-05-30] MEDS ORDERED: PPN PER PHARMACY IV SCH (20:00)
[2022-05-30] MEDS ORDERED: EPOETIN ALFA-EPBX 10,000 UNIT/1ML VIAL SC ONE (21:00)
[2022-05-31] VITALS (39 sets, daily range): BP systolic 102–126; BP diastolic 43–79
[2022-05-31] MEDS: FREE WATER GT SCH ×6 (02:00→22:00)
[2022-05-31] MEDS: IPRATROPIUM BROM 0.5 MG/2.5ML INH SOL NEB SCH ×6 (02:42→22:25)
[2022-05-31] MEDS: ALBUTEROL SULF 2.5 MG/0.5ML(0.5%) NEB SOLN NEB SCH ×6 (02:43→22:24)
[2022-05-31] MEDS: ACCU-CHEK COMFORT CURVE STRIP VI SCH ×5 (05:42→23:35)
[2022-05-31] MEDS: InsuLIN REG 1unit/0.01ml Soln (100units/ml) SC SCH ×5 (05:42→23:36)
[2022-05-31 05:46] LABS: Albumin 3.5 g/dL (3.4-5.0); BUN/Creatinine Ratio 23.1; Calcium 9.7 mg/dL (8.5-10.1); Magnesium 2.3 mg/dL (1.6-2.6)
[2022-05-31 05:50] LABS: Bilirubin, Total 0.6 mg/dL (0.2-1.0); Phosphorus 3.2 mg/dL (2.5-4.90); Total Protein 6.8 g/dL (6.4-8.2)
[2022-05-31 06:41] LABS: Basophils # (auto) 0 10 ^3/uL (0-0.2); Basophils % (auto) 0.3 % (0.0-2.0); Eosinophils # (auto) 0 10 ^3/uL (0-0.8); Eosinophils % (auto) 0.4 % (0.0-7.0); Hematocrit 26.6 % (41.0-53.0); Hemoglobin 8.6 g/dL (13.5-17.5); Lymphocytes # (auto) 0.4 10 ^3/uL (0.4-5.4); Lymphocytes % (auto) 4.1 % (10.0-50.0); Mean Corpuscular Hemoglobin 32.3 pg (28.0-32.0); Mean Corpuscular Hgb Conc. 32.4 g/dL (32.0-36.0); Mean Corpuscular Volume 99.9 fL (80.0-100.0); Monocytes # (auto) 0.6 10 ^3/uL (0-1.3); Monocytes % (auto) 6.7 % (0.0-12.0); Neutrophils # (auto) 8.2 10 ^3/uL (1.6-8.6); Neutrophils % (auto) 88.5 % (37.0-80.0); Nucleated Red Blood Cells % 0.2 %; Red Blood Cells 2.66 10^6/uL (4.5-5.90); Red Cell Distribution Width 15.1 % (11.8-14.3); White Blood Cell 9.3 10^3/uL (4.4-10.8)
[2022-05-31] MEDS: AMIODARONE HCL 200 MG TAB PO SCH ×2 (08:44→21:59)
[2022-05-31] MEDS: PANTOPRAZOLE 40 MG/10 ML VIAL INJ IV SCH (08:44)
[2022-05-31] MEDS: BUMETANIDE INJECTION 12.5 MG in GIVE UN-DILUTED 0 ML IV SCH (08:45)
[2022-05-31] MEDS: SODIUM CHLOR 0.9% PF (SALINE LOCK) 10ML VIAL/SYR IV SCH ×2 (08:46→22:00)
[2022-05-31] MEDS: HEPARIN SODIUM (PORCINE) 5000 UNITS/ML 1ML VIAL SC SCH ×2 (08:46→22:02)
[2022-05-31] MEDS ORDERED: SODIUM CHLORIDE 0.9% 1,000 ML IV ONE (09:30)
[2022-05-31] MEDS: PHENYLEPHRINE INJ 80 MG in SODIUM CHL 0.9% 242 ML IV SCH (11:30)
[2022-05-31] MEDS: NOREPINEPHRINE BITARTRATE 32 MG in SODIUM CHL 0.9% 218 ML IV SCH (11:30)
[2022-05-31] MEDS: POTASSIUM CHL 20MEQ/100ML 100 ML IV SCH ×3 (11:57→17:22)
[2022-05-31] MEDS: ACETAMINOPHEN 325 MG TAB PO PRN (17:32)
[2022-05-31] MEDS ORDERED: PPN PER PHARMACY IV NR ×7 (20:00)
[2022-06-01] VITALS (60 sets, daily range): BP systolic 59–114; BP diastolic 30–59
[2022-06-01] MEDS: FREE WATER GT SCH ×6 (02:00→20:50)
[2022-06-01] MEDS: ALBUTEROL SULF 2.5 MG/0.5ML(0.5%) NEB SOLN NEB SCH ×5 (02:50→22:52)
[2022-06-01] MEDS: IPRATROPIUM BROM 0.5 MG/2.5ML INH SOL NEB SCH ×6 (02:50→22:52)
[2022-06-01 05:54] LABS: Basophils # (auto) 0.1 10 ^3/uL (0-0.2); Eosinophils # (auto) 0 10 ^3/uL (0-0.8); Eosinophils % (auto) 0.2 % (0.0-7.0); Lymphocytes # (auto) 0.4 10 ^3/uL (0.4-5.4); Lymphocytes % (auto) 2.3 % (10.0-50.0); Neutrophils % (auto) 92.2 % (37.0-80.0)
[2022-06-01] MEDS: ACCU-CHEK COMFORT CURVE STRIP VI SCH ×4 (06:00→23:36)
[2022-06-01 06:01] LABS: Basophils % (auto) 0.4 % (0.0-2.0); Hematocrit 28.3 % (41.0-53.0); Mean Corpuscular Hemoglobin 31.5 pg (28.0-32.0); Mean Corpuscular Hgb Conc. 31.7 g/dL (32.0-36.0); Mean Corpuscular Volume 99.2 fL (80.0-100.0); Monocytes # (auto) 0.8 10 ^3/uL (0-1.3); Monocytes % (auto) 4.9 % (0.0-12.0); Neutrophils # (auto) 14.1 10 ^3/uL (1.6-8.6); Nucleated Red Blood Cells % 0.2 %; Red Blood Cells 2.85 10^6/uL (4.5-5.90); White Blood Cell 15.3 10^3/uL (4.4-10.8)
[2022-06-01] MEDS: InsuLIN REG 1unit/0.01ml Soln (100units/ml) SC SCH ×4 (06:15→23:36)
[2022-06-01 06:17] LABS: Potassium 3.4 mmol/L (3.5-5.1)
[2022-06-01 06:20] LABS: Albumin 3.3 g/dL (3.4-5.0); BUN/Creatinine Ratio 22.1; Calcium 9.5 mg/dL (8.5-10.1); Magnesium 2.2 mg/dL (1.6-2.6)
[2022-06-01 06:23] LABS: Bilirubin, Total 0.6 mg/dL (0.2-1.0); Phosphorus 2.6 mg/dL (2.5-4.90); Total Protein 6.8 g/dL (6.4-8.2)
[2022-06-01] MEDS ORDERED: SODIUM CHL 0.9% 1000 ML BAG XX ONE (07:00)
[2022-06-01] MEDS: NOREPINEPHRINE BITARTRATE 32 MG in SODIUM CHL 0.9% 218 ML IV SCH (11:30)
[2022-06-01] MEDS: PHENYLEPHRINE INJ 80 MG in SODIUM CHL 0.9% 242 ML IV SCH (11:30)
[2022-06-01] MEDS: SODIUM CHLOR 0.9% PF (SALINE LOCK) 10ML VIAL/SYR IV SCH ×2 (11:56→21:24)
[2022-06-01] MEDS: AMIODARONE HCL 200 MG TAB PO SCH ×3 (11:56→20:50)
[2022-06-01] MEDS: PANTOPRAZOLE 40 MG/10 ML VIAL INJ IV SCH (11:57)
[2022-06-01] MEDS ORDERED: TPN PER PHARMACY IV SCH (12:00)
[2022-06-01] MEDS ORDERED: TPN PER PHARMACY 0 ML IV SCH (12:00)
[2022-06-01] MEDS: HEPARIN SODIUM (PORCINE) 5000 UNITS/ML 1ML VIAL SC SCH ×2 (12:11→20:51)
[2022-06-01] MEDS: D5W 5% 1,000 ML IV SCH ×2 (12:16→21:25)
[2022-06-01] MEDS: INSULIN LANTUS (GLARGINE) 1 /0.01ml (100units/ml) SC SCH (12:22)
[2022-06-01] MEDS ORDERED: NOREPINEPHRINE 8 MG/250ML KIT 250 ML IV ONE (17:25)
[2022-06-01] MEDS ORDERED: TPN PER PHARMACY IV NR ×8 (20:00)
[2022-06-01] MEDS ORDERED: EPOETIN ALFA-EPBX 10,000 UNIT/1ML VIAL SC ONE (21:00)
[2022-06-02] VITALS (26 sets, daily range): BP systolic 62–123; BP diastolic 37–63
[2022-06-02] MEDS: FREE WATER GT SCH ×2 (01:29→04:50)
[2022-06-02] MEDS: ALBUTEROL SULF 2.5 MG/0.5ML(0.5%) NEB SOLN NEB SCH ×3 (02:36→10:23)
[2022-06-02] MEDS: IPRATROPIUM BROM 0.5 MG/2.5ML INH SOL NEB SCH ×3 (02:36→10:23)
[2022-06-02 05:11] LABS: Eosinophils # (auto) 0 10 ^3/uL (0-0.8); Monocytes # (auto) 0.8 10 ^3/uL (0-1.3); Nucleated Red Blood Cells % 0.1 %
[2022-06-02 05:14] LABS: Basophils # (auto) 0.1 10 ^3/uL (0-0.2); Basophils % (auto) 0.3 % (0.0-2.0); Eosinophils % (auto) 0.1 % (0.0-7.0); Hematocrit 25.6 % (41.0-53.0); Hemoglobin 8.3 g/dL (13.5-17.5); Lymphocytes # (auto) 0.5 10 ^3/uL (0.4-5.4); Lymphocytes % (auto) 3.4 % (10.0-50.0); Mean Corpuscular Hgb Conc. 32.5 g/dL (32.0-36.0); Mean Corpuscular Volume 98.5 fL (80.0-100.0); Monocytes % (auto) 5.4 % (0.0-12.0); Neutrophils # (auto) 13.7 10 ^3/uL (1.6-8.6); Neutrophils % (auto) 90.8 % (37.0-80.0); Red Cell Distribution Width 15.1 % (11.8-14.3); White Blood Cell 15.1 10^3/uL (4.4-10.8)
[2022-06-02 05:34] LABS: Albumin 3.1 g/dL (3.4-5.0); Calcium 8.6 mg/dL (8.5-10.1); Magnesium 1.9 mg/dL (1.6-2.6); Potassium 3.7 mmol/L (3.5-5.1)
[2022-06-02 05:37] LABS: BUN/Creatinine Ratio 22.1; Bilirubin, Total 0.9 mg/dL (0.2-1.0); Phosphorus 1.8 mg/dL (2.5-4.90); Total Protein 6.3 g/dL (6.4-8.2)
[2022-06-02] MEDS: ACCU-CHEK COMFORT CURVE STRIP VI SCH (05:53)
[2022-06-02] MEDS: InsuLIN REG 1unit/0.01ml Soln (100units/ml) SC SCH (05:53)
[2022-06-02] MEDS: INSULIN LANTUS (GLARGINE) 1 /0.01ml (100units/ml) SC SCH (06:58)
[2022-06-02] MEDS ORDERED: MORPHINE SULFATE INJ 2 MG/ml SYRG IV PRN (10:45)
[2022-06-02] MEDS: LORazepam 2MG/ML-1ML VIAL IV PRN ×3 (11:00→22:18)
[2022-06-02] MEDS: HYDROmorphone HCL 2 MG/ML VL/or syr IV PRN (11:44)
[2022-06-02] MEDS ORDERED: TPN PER PHARMACY IV NR ×10 (20:00)
[2022-06-03 05:00] VITALS: BP 101/49
[2022-06-03 09:00] VITALS: BP 97/50
[2022-06-03] MEDS: HYDROmorphone HCL 2 MG/ML VL/or syr IV PRN ×3 (10:58→21:06)
[2022-06-03] MEDS: LORazepam 2MG/ML-1ML VIAL IV PRN (12:44)
[2022-06-03 13:00] VITALS: BP 90/57
[2022-06-03 17:00] VITALS: BP 106/56
[2022-06-03 22:00] VITALS: BP 101/56
[2022-06-04] MEDS: LORazepam 2MG/ML-1ML VIAL IV PRN ×2 (00:42→13:25)
[2022-06-04] MEDS: HYDROmorphone HCL 2 MG/ML VL/or syr IV PRN ×3 (04:14→12:47)
[2022-06-04 05:00] VITALS: BP 135/63
[2022-06-04 09:00] VITALS: BP 124/62
[2022-06-04 12:54] VITALS: BP 124/62
== END 2022-06-04 13:40 | disposition hospice, home (50) | DRG 870 ==
LOC: EDBD 14:23 → ER 14:23 → TELE 16:44 → ICU CENTRL 05-20 18:07 → CENTRAL 06-02 18:42
PROVIDERS: ADMIT Nurse Practitioner Family; ATTEND Internal Medicine Pulmonary Disease
PROC: 5A1D70Z Performance of Urinary Filtration, Intermittent, Less than 6 Hours Per Day (ICD-10-PCS; 2022-05-19)
PROC: 06HM33Z Insertion of Infusion Device into Right Femoral Vein, Percutaneous Approach (ICD-10-PCS; 2022-05-19)
PROC: 5A1955Z Respiratory Ventilation, Greater than 96 Consecutive Hours (ICD-10-PCS; principal; 2022-05-20)
PROC: 0BH17EZ Insertion of Endotracheal Airway into Trachea, Via Natural or Artificial Opening (ICD-10-PCS; 2022-05-20)
PROC: 06HN33Z Insertion of Infusion Device into Left Femoral Vein, Percutaneous Approach (ICD-10-PCS; 2022-05-20)
PROC: 02HV33Z Insertion of Infusion Device into Superior Vena Cava, Percutaneous Approach (ICD-10-PCS; 2022-05-22)
PROC: B548ZZA Ultrasonography of Superior Vena Cava, Guidance (ICD-10-PCS; 2022-05-22)
PROC: 5A1D70Z Performance of Urinary Filtration, Intermittent, Less than 6 Hours Per Day (ICD-10-PCS; 2022-05-23)
PROC: 5A1D70Z Performance of Urinary Filtration, Intermittent, Less than 6 Hours Per Day (ICD-10-PCS; 2022-05-26)
PROC: B211YZZ Fluoroscopy of Multiple Coronary Arteries using Other Contrast (ICD-10-PCS; 2022-05-27)
PROC: 5A1D70Z Performance of Urinary Filtration, Intermittent, Less than 6 Hours Per Day (ICD-10-PCS; 2022-05-28)
PROC: 5A0935A Assistance with Respiratory Ventilation, Less than 24 Consecutive Hours, High Flow/Velocity Cannula (ICD-10-PCS; 2022-05-28)
PROC: 30233N1 Transfusion of Nonautologous Red Blood Cells into Peripheral Vein, Percutaneous Approach (ICD-10-PCS; 2022-05-29)
PROC: 5A0935A Assistance with Respiratory Ventilation, Less than 24 Consecutive Hours, High Flow/Velocity Cannula (ICD-10-PCS; 2022-05-29)
PROC: 5A0935A Assistance with Respiratory Ventilation, Less than 24 Consecutive Hours, High Flow/Velocity Cannula (ICD-10-PCS; 2022-05-30)
PROC: 05H633Z Insertion of Infusion Device into Left Subclavian Vein, Percutaneous Approach (ICD-10-PCS; 2022-05-31)
PROC: B547ZZA Ultrasonography of Left Subclavian Vein, Guidance (ICD-10-PCS; 2022-05-31)
PROC: 5A0935A Assistance with Respiratory Ventilation, Less than 24 Consecutive Hours, High Flow/Velocity Cannula (ICD-10-PCS; 2022-05-31)
PROC: 5A1D70Z Performance of Urinary Filtration, Intermittent, Less than 6 Hours Per Day (ICD-10-PCS; 2022-06-01)
PROC: 5A09357 Assistance with Respiratory Ventilation, Less than 24 Consecutive Hours, Continuous Positive Airway Pressure (ICD-10-PCS; 2022-06-01)
DX: A41.9 Sepsis, unspecified organism (principal); I21.A1 Myocardial infarction type 2; J96.01 Acute respiratory failure with hypoxia; R65.21 Severe sepsis with septic shock; J18.9 Pneumonia, unspecified organism; N18.6 End stage renal disease; G92.8 Other toxic encephalopathy; N17.0 Acute kidney failure with tubular necrosis; E46 Unspecified protein-calorie malnutrition; G93.1 Anoxic brain damage, not elsewhere classified; I47.1 Supraventricular tachycardia; I50.32 Chronic diastolic (congestive) heart failure; D62 Acute posthemorrhagic anemia; E87.0 Hyperosmolality and hypernatremia; G93.49 Other encephalopathy; I13.2 Hypertensive heart and chronic kidney disease with heart failure and with stage 5 chronic kidney disease, or end stage renal disease; J98.11 Atelectasis; D63.8 Anemia in other chronic diseases classified elsewhere; Z51.5 Encounter for palliative care; E11.22 Type 2 diabetes mellitus with diabetic chronic kidney disease; E11.65 Type 2 diabetes mellitus with hyperglycemia; E78.5 Hyperlipidemia, unspecified; E87.5 Hyperkalemia; F17.200 Nicotine dependence, unspecified, uncomplicated; E11.51 Type 2 diabetes mellitus with diabetic peripheral angiopathy without gangrene; G30.9 Alzheimer's disease, unspecified; F02.80 Dementia in other diseases classified elsewhere, unspecified severity, without behavioral disturbance, psychotic disturbance, mood disturbance, and anxiety; I48.0 Paroxysmal atrial fibrillation; E11.649 Type 2 diabetes mellitus with hypoglycemia without coma; Z20.822 Contact with and (suspected) exposure to COVID-19; D69.6 Thrombocytopenia, unspecified; D63.1 Anemia in chronic kidney disease; K21.9 Gastro-esophageal reflux disease without esophagitis; E87.6 Hypokalemia; I25.10 Atherosclerotic heart disease of native coronary artery without angina pectoris; Z78.1 Physical restraint status; Z79.4 Long term (current) use of insulin; Z68.22 Body mass index [BMI] 22.0-22.9, adult; Z82.49 Family history of ischemic heart disease and other diseases of the circulatory system; Z83.3 Family history of diabetes mellitus; Z89.511 Acquired absence of right leg below knee; Z99.2 Dependence on renal dialysis; Z88.5 Allergy status to narcotic agent
CPT/HCPCS: 36415; 36556; 36569; 36600; 70450; 71045; 80048; 80053; 80074; 80307; 80320; 81001; 82607; 82746; 82805; 82962; 83036; 83540; 83550; 83605; 83735; 83880; 84100; 84132; 84295; 84439; 84443; 84478; 84484; 85007; 85025; 85027; 85379; 85610; 85730; 86850; 86900; 86901; 86920; 87040; 87070; 87081; 87086; 87205; 87426; 90935; 92610; 93005; 93306; 93970; 94002; 94003; 94640; 94660; 95819; 96365; 96367; 96368; 96375; 97163; 99152; 99291; C9113; G0378; J0696; J1642; J1815; J2250; J2704; J3480; J7060; P9047; Q9967